=== PATIENT | female | born 1980 | race Caucasian/White ===

== ENCOUNTER 2018-06-22 11:22 | Emergency (ER) | payer BC, MEDICAID ==
[~2018-06-22] VITALS: Ht 167.6 cm; Wt 58.1 kg
[~2018-06-22 11:22] MED LIST: CODE-54 PO; Ibuprofen PO; LVT.025T PO; PREN1TAB19 PO
[2018-06-22] MEDS ORDERED: ONDANSETRON 4 MG/2 ML (SDV) Z0FRAN IVP ONE (12:00)
[2018-06-22] MEDS ORDERED: NS IV 1000 ML 1,000 ML IV SCH (12:00)
--- NOTE | 2018-06-22 12:04 | ED Abdominal Pain ---
General Chief Complaint: Abdominal/GI Problems Stated Complaint: LRQ PAIN; ABD PAIN Source of Information: Patient History of Present Illness Date Seen by Provider: Jun 22, 2018 Time Seen by Provider: 11:58 Initial Comments Patient is a 38-year-old female who presents with intermittent periumbilical pain rating to right lower quadrant/pelvis. Symptom onset was yesterday. Patient also reports nausea, loose stools, and loss of appetite. Pain is rated as moderate and is gradually getting worse. No fever chills, sweats. Patient does report obstipation. No other acute symptoms or complaints. Currently on menstrual period, not taking control. Previous cholecystectomy. Timing/Duration: 12-24 Hours Severity/Quality: Moderate Radiation: RLQ, Back Activities at Onset: None Allergies and Home Medications Allergies Coded Allergies: Penicillins (Verified Allergy, Unknown, 10/14/13) morphine (Verified Allergy, Unknown, throat tightens, 10/15/13) Uncoded Allergies: surgical glue (Adverse Reaction, Unknown, rash, blisters, 10/15/13) Home Medications Acetaminophen/Codeine 1 Tab Tablet, 1-2 TAB PO Q4H PRN for MODERATE TO SEVERE PAIN Prescribed by: CHASITY RAO on 10/27/13 0747 Levothyroxine Sodium 25 Mcg Tablet, 1 EACH PO DAILY, (Reported) Vit/Fe Fumarate/Fa 1 Each Tablet, 1 EACH PO DAILY, (Reported) [Ibuprofen] 600 MG TAB, 600 MG PO Q6H Prescribed by: CHASITY RAO on 10/27/13 0747 Patient Home Medication List Home Medication List Reviewed: Yes Review of Systems Review of Systems Constitutional: see HPI EENTM: Throat Pain Respiratory: No Symptoms Reported Cardiovascular: No Symptoms Reported Gastrointestinal: Abdomen Distended, Abdominal Pain, Nausea, Poor Appetite, Poor Fluid Intake Genitourinary: No Symptoms Reported Musculoskeletal: no symptoms reported Skin: no symptoms reported Psychiatric/Neurological: No Symptoms Reported Endocrine: No Symptoms Reported Past Xmbcfrt-Zeysmp-Fcaoiw Hx Patient Social History Alcohol Use: Denies Use Recreational Drug Use: No Smoking Status: Never a Smoker 2nd Hand Smoke Exposure: No Physical Abuse: No Sexual Abuse: No Mistreated: No Fear: No Immunizations Up To Date Tetanus Booster (TDap): Less than 5yrs PED Vaccines UTD: No Past Medical History Surgeries: Yes (2009; left knee surgery meniscus repair; wisdom teeth) Gallbladder Respiratory: No Cardiac: No Neurological: No Reproductive Disorders: No Female Reproductive Disorders: Polycystic Ovarian Dis Sexually Transmitted Disease: No HIV/AIDS: No Genitourinary: Yes Kidney Stones Gastrointestinal: No Musculoskeletal: No Endocrine: Yes Hypothyroidsim HEENT: No Hearing Impairment: Denies Cancer: No Psychosocial: No Integumentary: No Blood Disorders: No Adverse Reaction/Blood Tranf: No Family Medical History Diabetes mellitus 19 FATHER, Onset:60 years & older Physical Exam Vital Signs Vital Signs - First Documented 06/22/18 11:52 Temp 97.2 Pulse 72 Resp 18 B/P (MAP) 114/71 (85) Pulse Ox 99 O2 Delivery Room Air Capillary Refill : Height/Weight/BMI Height: 5'6.00" Weight: 153lbs. 2.0oz. [id number]; BMI Method: General Appearance: WD/WN, mild distress HEENT: PERRL/EOMI, normal ENT inspection, TMs normal, pharynx normal, scleral icterus (R) Neck: full range of motion, supple Cardiovascular: normal peripheral pulses Gastrointestinal: soft, abnormal bowel sounds, tenderness (periumbilical, right lower quadrant) Extremities: normal range of motion, non-tender Skin: normal color Focused Exam Sepsis Stage: Ruled Out Progress/Results/Core Measures Results/Orders Lab Results Laboratory Tests Test 06/22/18 12:00 06/22/18 12:10 Range/Units White Blood Count 5.5 4.3-11.0 10^3/uL Red Blood Count 4.91 4.35-5.85 10^6/uL Hemoglobin 14.6 11.5-16.0 G/DL Hematocrit 44 35-52 % Mean Corpuscular Volume 90 80-99 FL Mean Corpuscular Hemoglobin 30 25-34 PG Mean Corpuscular Hemoglobin Concent 33 32-36 G/DL Red Cell Distribution Width 13.2 10.0-14.5 % Platelet Count 200 130-400 10^3/uL Mean Platelet Volume 11.0 H 7.4-10.4 FL Neutrophils (%) (Auto) 61 42-75 % Lymphocytes (%) (Auto) 29 12-44 % Monocytes (%) (Auto) 5 0-12 % Eosinophils (%) (Auto) 4 0-10 % Basophils (%) (Auto) 1 0-10 % Neutrophils # (Auto) 3.4 1.8-7.8 X 10^3 Lymphocytes # (Auto) 1.6 1.0-4.0 X 10^3 Monocytes # (Auto) 0.3 0.0-1.0 X 10^3 Eosinophils # (Auto) 0.2 0.0-0.3 10^3/uL Basophils # (Auto) 0.1 0.0-0.1 10^3/uL Sodium Level 141 135-145 MMOL/L Potassium Level 4.0 3.6-5.0 MMOL/L Chloride Level 100 98-107 MMOL/L Carbon Dioxide Level 28 21-32 MMOL/L Anion Gap 13 5-14 MMOL/L Blood Urea Nitrogen 12 7-18 MG/DL Creatinine 0.83 0.60-1.30 MG/DL Estimat Glomerular Filtration Rate > 60 BUN/Creatinine Ratio 14 Glucose Level 94 70-105 MG/DL Calcium Level 9.9 8.5-10.1 MG/DL Corrected Calcium 8.5-10.1 MG/DL Total Bilirubin 0.4 0.1-1.0 MG/DL Aspartate Amino Transf (AST/SGOT) 21 5-34 U/L Alanine Aminotransferase (ALT/SGPT) 19 0-55 U/L Alkaline Phosphatase 48 40-136 U/L Total Protein 7.9 6.4-8.2 GM/DL Albumin 5.0 H 3.2-4.5 GM/DL Lipase 42 8-78 U/L Serum Test, Qualitative NEGATIVE NEGATIVE Urine Color YELLOW Urine Clarity CLEAR Urine pH 7.0 5-9 Urine Specific [place] <=1.005 1.016-1.022 Urine Protein NEGATIVE NEGATIVE Urine Glucose (UA) NEGATIVE NEGATIVE Urine Ketones NEGATIVE NEGATIVE Urine Nitrite NEGATIVE NEGATIVE Urine Bilirubin NEGATIVE NEGATIVE Urine Urobilinogen 0.2 NORMAL MG/DL Urine Leukocyte Esterase TRACE H NEGATIVE Urine RBC (Auto) 3+ H NEGATIVE Urine RBC 2-5 H /HPF Urine WBC 5-10 H /HPF Urine Squamous Epithelial Cells 5-10 /HPF Urine Crystals NONE /LPF Urine Bacteria NEGATIVE /HPF Urine Casts NONE /LPF Urine Mucus NEGATIVE /LPF Urine Culture Indicated YES My Orders Orders - CHAVEZ LOAIZA DO Cbc With Automated Diff (06/22/18 11:47) Comprehensive Metabolic Panel (06/22/18 11:47) Lipase (06/22/18 11:47) Ua Culture If Indicated (06/22/18 11:47) Ondansetron Injection (Zofran Injectio (06/22/18 12:00) Ns Iv 1000 Ml (Sodium Chloride 0.9%) (06/22/18 12:00) Hcg,Qualitative Serum (06/22/18 11:47) Urine Culture (06/22/18 12:10) Ct Abd/Pelv W (Appendicitis) (06/22/18 12:43) Fentanyl Injection (Sublimaze Injection (06/22/18 12:45) Iohexol Injection (Omnipaque 350 Mg/Ml 1 (06/22/18 13:00) Received Contrast (Hold Metformin- Contr (06/22/18 13:00) Sodium Chloride Flush (Catheter Flush Sy (06/22/18 13:00) Ns (Ivpb) (Sodium Chloride 0.9% Ivpb Bag (06/22/18 13:00) Medications Given in ED Current Medications Medications Dose Ordered Sig/Shiraz Route Start Time Stop Time Status Last Admin Dose Admin Fentanyl Citrate 25 mcg Q1H PRN IVP 06/22/18 12:45 06/22/18 13:00 25 MCG Iohexol 100 ml ONCE ONCE IV 06/22/18 13:00 06/22/18 13:01 DC 06/22/18 13:26 100 ML Ondansetron HCl 4 mg ONCE ONCE IVP 06/22/18 12:00 06/22/18 12:01 DC 06/22/18 12:20 4 MG Sodium Chloride 10 ml NEEDED PRN IV 06/22/18 13:00 06/22/18 13:26 10 ML Sodium Chloride 50 ml ONCE ONCE IV 06/22/18 13:00 06/22/18 13:01 DC 06/22/18 13:26 50 ML Vital Signs/I&O 06/22/18 06/22/18 11:52 13:00 Temp 97.2 97.2 Pulse 72 Resp 18 B/P (MAP) 114/71 (85) Pulse Ox 99 O2 Delivery Room Air Departure Communication (Admissions) Labs, imaging studies reviewed. No acute findings. Patient's symptoms improved with treatment. Recommend continued supportive care with PCP follow-up. Return precautions reviewed. Impression Primary Impression: Abdominal pain Additional Impressions: Nausea UTI (urinary tract infection) Disposition: HOME, SELF-CARE Condition: Stable Departure-Patient Inst. Decision time for Depature: 14:17 Referrals: VEGA LONDON MD (PCP/Family) Primary Care Physician Patient Instructions: Acute Abdomen (Belly Pain), Nausea and Vomiting, Adult, Urinary Tract Infection, Adult (DC) Add. Discharge Instructions: Please increase fluids, take the prescribed medications as directed. Follow up with her PCP for further evaluation in 3-5 days as needed. All discharge instructions reviewed with patient and/or family. Voiced understanding. Scripts Nitrofurantoin Macrocrystal (Macrodantin) 100 Mg Capsule 100 MG PO BID, #20 CAP Prov: CHAVEZ LOAIZA DO 06/22/18 Famotidine (Pepcid) 20 Mg Tablet 20 MG PO BID, #20 TAB Prov: CHAVEZ LOAIZA DO 06/22/18 Ondansetron (Ondansetron Odt) 4 Mg Tab.rapdis 4 MG PO Q6H, #10 TAB Prov: CHAVEZ LOAIZA DO 06/22/18 CHAVEZ LOAIZA DO Jun 22, 2018 12:04
--- OUTSIDE RECORDS SUMMARY | 2018-06-22 12:08 | XMS REPORT | Continuity of Care Document ---
Author Organization Unknown Address Unknown Allergies Active Description Code Type Severity Reaction Onset Reported/Identified Relationship to Patient Clinical Status Yes Penicillins [id number] Drug Allergy Unknown N/A 10/14/2013 Yes morphine [id number] Drug Allergy Unknown throat tightens 10/15/2013 Yes surgical glue surgical glue Unknown rash, blisters 10/15/2013 Medications There is no data. Problems Date Dx Coded Attending Type Code Diagnosis Diagnosed By 10/14/2013 CHASITY RAO DO Ot 599.0 URIN TRACT INFECTION NOS 10/14/2013 CHASITY RAO DO Ot 646.63 INFECTION-ANTEPARTUM 10/14/2013 CHASITY RAO DO Ot 661.03 PRIM UTER INERT-ANTEPART 10/16/2013 CHASITY RAO DO Ot 646.83 PREG COMPL NEC-ANTEPART 10/16/2013 CHASITY RAO DO Ot 789.00 ABDOMINAL PAIN, UNSPECIFIED SITE 10/27/2013 CHASITY RAO DO Ot 659.71 ABN DEL FET HT RT/RHYTHM,W OR W/O MENTIO 10/27/2013 CHASITY RAO DO Ot V06.1 [id number], COMBINED [ 10/27/2013 CHASITY RAO DO Ot V27.0 DELIVER-SINGLE LIVEBORN Procedures Code Description Performed By Performed On 73.59 MANUAL ASSIST DELIV NEC 10/25/2013 Results There is no data. Encounters ACCT No. Visit Date/Time Discharge Status Pt. Type Provider Facility Loc./Unit Complaint [id number] 10/25/2013 17:09:00 10/27/2013 13:10:00 DIS Inpatient CHASITY RAO DO [facility] LDRP LABOR [id number] 10/15/2013 22:23:00 10/16/2013 08:55:00 DIS Outpatient CHASITY RAO DO [facility] WSo CONTRACTIONS [id number] 10/13/2013 23:45:00 10/14/2013 13:15:00 DIS Inpatient CHASITY RAO DO [facility] LDRP CONTRACTIONS,BACK PAIN, UTI [id number] 06/22/2018 11:24:00 ACT Emergency CHAVEZ LOAIZA DO [facility] ER FS LRQ PAIN; ABD PAIN
[2018-06-22 12:35] LABS: BACTERIA,URINE NEGATIVE /HPF; BILIRUBIN,URINE NEGATIVE (NEGATIVE); CLARITY,URINE CLEAR; COLOR,URINE YELLOW; GLUCOSE, URINE (UA) NEGATIVE (NEGATIVE); KETONES,URINE NEGATIVE (NEGATIVE); LEUKOCYTE ESTERASE ,URINE TRACE (NEGATIVE); NITRITE,URINE NEGATIVE (NEGATIVE); PROTEIN,URINE NEGATIVE (NEGATIVE); UROBILINOGEN,URINE 0.2 MG/DL (NORMAL)
[2018-06-22 12:38] LABS: WHITE BLOOD COUNT 5.5 10^3/uL (4.3-11.0)
[2018-06-22 12:39] LABS: BASOPHILS # (AUTO) 0.1 10^3/uL (0.0-0.1); BASOPHILS % (AUTO) 1 % (0-10); EOSINOPHILS # (AUTO) 0.2 10^3/uL (0.0-0.3); EOSINOPHILS % (AUTO) 4 % (0-10); HEMATOCRIT 44 % (35-52); HEMOGLOBIN 14.6 G/DL (11.5-16.0); LYMPHOCYTES # (AUTO) 1.6 X 10^3 (1.0-4.0); LYMPHOCYTES % (AUTO) 29 % (12-44); MEAN CORPUSCULAR HEMOGLOBIN 30 PG (25-34); MEAN CORPUSCULAR HGB CONC 33 G/DL (32-36); MEAN CORPUSCULAR VOLUME 90 FL (80-99); MONOCYTES # (AUTO) 0.3 X 10^3 (0.0-1.0); MONOCYTES % (AUTO) 5 % (0-12); NEUTROPHILS # (AUTO) 3.4 X 10^3 (1.8-7.8); NEUTROPHILS % (AUTO) 61 % (42-75); PLATELET COUNT 200 10^3/uL (130-400); RED CELL DISTRIBUTION WIDTH 13.2 % (10.0-14.5)
[2018-06-22] MEDS ORDERED: fentaNYL INJECTION 100 MCG/2 ML AMP IVP PRN (12:45)
[2018-06-22 12:54] LABS: ALKALINE PHOSPHATASE 48 U/L (40-136); BILIRUBIN,TOTAL 0.4 MG/DL (0.1-1.0); BUN/CREATININE RATIO 14; CALCIUM 9.9 MG/DL (8.5-10.1); CARBON DIOXIDE 28 MMOL/L (21-32); CHLORIDE 100 MMOL/L (98-107); CREATININE SERUM 0.83 MG/DL (0.60-1.30); GFR ESTIMATED > 60; GLUCOSE 94 MG/DL (70-105); SODIUM 141 MMOL/L (135-145)
[2018-06-22 12:55] LABS: ALANINE AMINOTRANSFERASE 19 U/L (0-55); LIPASE 42 U/L (8-78); TOTAL PROTEIN 7.9 GM/DL (6.4-8.2)
[2018-06-22] MEDS ORDERED: NS 50 ML (IVPB) BAG IV ONE (13:00)
[2018-06-22] MEDS ORDERED: HOLD METFORMIN - RECEIVED CONTRAST 20 ML VIAL IV SCH (13:00)
[2018-06-22] MEDS ORDERED: CATHETER FLUSH 10 ML SYR IV PRN (13:00)
[2018-06-22] MEDS ORDERED: IOHEXOL 350 MG/ML 100 ML (OMNIPAQUE 350) VIAL IV ONE (13:00)
--- NOTE | 2018-06-22 13:47 | Diagnostic Imaging Report ---
PROCEDURE: CT abdomen and pelvis with contrast, rule out appendicitis. TECHNIQUE: Multiple contiguous axial images were obtained through the abdomen and pelvis after the administration of intravenous contrast. INDICATION: Right lower quadrant pain. COMPARISON: No prior studies are available for comparison. FINDINGS: The lung bases are clear. No discrete liver mass is identified. Gallbladder is surgically absent. Intrahepatic bile ducts are mildly prominent, which could be secondary to post cholecystectomy. The pancreas and spleen are unremarkable. No adrenal mass is identified. No definite renal calculi or hydronephrosis is seen. The aorta is nonaneurysmal. The small and large bowel loops are normal in caliber. The appendix is visualized in the right lower quadrant and appears unremarkable. No periappendiceal inflammation is detected. No free fluid in the abdomen is seen. There is trace free fluid in the pelvis. The uterus and bladder are unremarkable. No lymphadenopathy is seen. IMPRESSION: 1. No CT evidence of acute appendicitis. No definite urinary tract calculi or obstruction is seen. No acute feature is identified. Dictated by: Dictated on workstation # [id number]
[2018-06-22] MEDS ORDERED: ONDA4TAB11 PO (14:20)
[2018-06-22] MEDS ORDERED: FAMO-119 PO (14:20)
[2018-06-22] MEDS ORDERED: NITR-68 PO (14:20)
[2018-06-22 14:32] VITALS: BP 110/70
== END 2018-06-22 14:34 | disposition home or self-care (01) ==
LOC: EDUNIT# 11:22 → ER FS 11:24
DX: N39.0 Urinary tract infection, site not specified (principal); E03.9 Hypothyroidism, unspecified; Z90.49 Acquired absence of other specified parts of digestive tract; Z88.0 Allergy status to penicillin; Z88.5 Allergy status to narcotic agent; Z91.048 Other nonmedicinal substance allergy status; Z87.448 Personal history of other diseases of urinary system; Z87.442 Personal history of urinary calculi
CPT/HCPCS: 36415; 74177; 80053; 81000; 83690; 84703; 85025; 87088

== ENCOUNTER 2018-09-12 17:07 | Emergency (ER) | payer BC ==
[~2018-09-12] VITALS: Ht 167.6 cm; Wt 58.1 kg
[~2018-09-12 17:07] MED LIST changes: +FAMO-119 PO; +NITR-68 PO; +ONDA4TAB11 PO
[2018-09-12] MEDS ORDERED: ACETAMINOPHEN 500 MG TAB (TYLENOL) PO STA (18:20)
[2018-09-12] MEDS ORDERED: NS IV 1000 ML 1,000 ML IV SCH (18:20)
[2018-09-12] MEDS ORDERED: KETOROLAC 30 MG/ML VIAL IVP ONE (18:30)
[2018-09-12] MEDS ORDERED: cefTRIAXone FOR IV USE 1,000 MG in WATER (STERILE) FOR INJECTION 10 ML IV ONE (18:30)
[2018-09-12 18:32] LABS: HEMATOCRIT 44 % (35-52); HEMOGLOBIN 14.7 G/DL (11.5-16.0); MEAN CORPUSCULAR HEMOGLOBIN 30 PG (25-34); MEAN CORPUSCULAR VOLUME 89 FL (80-99); WHITE BLOOD COUNT 3.8 10^3/uL (4.3-11.0)
[2018-09-12 18:33] LABS: BASOPHILS % (AUTO) 1 % (0-10); EOSINOPHILS # (AUTO) 0.1 10^3/uL (0.0-0.3); EOSINOPHILS % (AUTO) 2 % (0-10); LYMPHOCYTES # (AUTO) 0.7 X 10^3 (1.0-4.0); LYMPHOCYTES % (AUTO) 18 % (12-44); MEAN CORPUSCULAR HGB CONC 33 G/DL (32-36); MEAN PLATELET VOLUME 10.7 FL (7.4-10.4); MONOCYTES # (AUTO) 0.4 X 10^3 (0.0-1.0); MONOCYTES % (AUTO) 11 % (0-12); NEUTROPHILS # (AUTO) 2.6 X 10^3 (1.8-7.8); NEUTROPHILS % (AUTO) 68 % (42-75); PLATELET COUNT 148 10^3/uL (130-400); RED CELL DISTRIBUTION WIDTH 13.4 % (10.0-14.5)
--- NOTE | 2018-09-12 18:33 | ED GU-Female ---
General Chief Complaint: Abdominal/GI Problems Stated Complaint: BODY ACHES,FEVER,CHILLS Nursing Triage Note: Pt to ED reporting worsening sx since diagnosed with UTI on Thursday at [facility]. Worsening with malaise/fever and right flank pain. [facility] Day would not evaluate as already seen and tx'd recently. Nursing Sepsis Screen: Possible Severe Sepsis Risk Source: patient Exam Limitations: no limitations History of Present Illness Date Seen by Provider: Sep 12, 2018 Time Seen by Provider: 18:00 Initial Comments The patient presents to ER by private conveyance with chief complaint that 2 days ago she started having dysuria and mild right flank pain so she went to a walk-in clinic and had a urinalysis obtained and put on Macrobid. Yesterday she said she was feeling better after starting the antibiotic but then today she started feeling rundown wore out having chills and worsening pain in her right flank. She went back to urgent care had another urinalysis done which was unremarkable and was told that her urine culture was not growing anything out. She was told to discontinue the Macrobid as it was not working. She's been using Advil 400 mg with her last use 6 hours ago at noon. She has to work tomorrow and her boss insisted that she come get checked out. She is checked her temperature several times about the day but has never been above 99. She is wearing a coat and chilling. She has been using Advil around the clock. She did recently lose her of brain cancer within the last couple months. She has not been taking care of herself as well as she should. She says she has a history of kidney stones many years ago and had a stent placed. She also has a history of multiple UTIs in the last few months. She also noticed today that since starting the Macrobid she's had copious thin clear non-malodorous discharge from the vagina. She describes the pain in her right chest down at the anterior and lateral right side of her ribs and abdomen and painful to direct palpation but not painful at rest. Feels like burning, hot. Allergies and Home Medications Allergies Coded Allergies: Penicillins (Verified Allergy, Unknown, 10/14/13) morphine (Verified Allergy, Unknown, throat tightens, 10/15/13) Uncoded Allergies: surgical glue (Adverse Reaction, Unknown, rash, blisters, 10/15/13) Home Medications Acetaminophen/Codeine 1 Tab Tablet, 1-2 TAB PO Q4H PRN for MODERATE TO SEVERE PAIN Prescribed by: CHASITY RAO on 10/27/13746 Famotidine 20 Mg Tablet, 20 MG PO BID Prescribed by: CHAVEZ LOAIZA on 06/22/181419 Levothyroxine Sodium 25 Mcg Tablet, 1 EACH PO DAILY, (Reported) Nitrofurantoin Macrocrystal 100 Mg Capsule, 100 MG PO BID Prescribed by: CHAVEZ LOAIZA on 06/22/181419 Ondansetron 4 Mg Tab.rapdis, 4 MG PO Q6H Prescribed by: CHAVEZ LOAIZA on 06/22/181419 Vit/Fe Fumarate/Fa 1 Each Tablet, 1 EACH PO DAILY, (Reported) [Ibuprofen] 600 MG TAB, 600 MG PO Q6H Prescribed by: CHASITY RAO on 10/27/13746 Patient Home Medication List Home Medication List Reviewed: Yes Review of Systems Review of Systems Constitutional: chills; No diaphoresis; malaise EENTM: No ear discharge, No ear pain Respiratory: No cough Gastrointestinal: abdominal pain (right flank); No constipation, No diarrhea, No nausea Genitourinary: discharge, dysuria Past Wskssgk-[id number]-Xutvkx Hx Patient Social History Alcohol Use: Denies Use Recreational Drug Use: No Smoking Status: Never a Smoker 2nd Hand Smoke Exposure: No Recent Foreign Travel: No Contact w/Someone Who Travel: No Recent Infectious Disease Expo: No Recent Hopitalizations: No Physical Abuse: No Sexual Abuse: No Mistreated: No Fear: No Immunizations Up To Date Tetanus Booster (TDap): Less than 5yrs PED Vaccines UTD: No Seasonal Allergies Seasonal Allergies: No Past Medical History Surgeries: Yes (2009; left knee surgery meniscus repair; wisdom teeth) Gallbladder Respiratory: No Cardiac: No Neurological: No : No Reproductive Disorders: No Female Reproductive Disorders: Polycystic Ovarian Dis Sexually Transmitted Disease: No HIV/AIDS: No Genitourinary: Yes Kidney Stones Gastrointestinal: No Musculoskeletal: No Endocrine: Yes Hypothyroidsim HEENT: No Hearing Impairment: Denies Cancer: No Psychosocial: No Integumentary: No Blood Disorders: No Adverse Reaction/Blood Tranf: No Family Medical History Diabetes mellitus 19 FATHER, Onset:60 years & older Physical Exam Vital Signs Vital Signs - First Documented 09/12/18 17:19 Temp 99.8 Pulse 100 Resp 16 B/P (MAP) 105/63 (77) Pulse Ox 95 O2 Delivery Room Air Capillary Refill : Less Than 3 Seconds Height, Weight, BMI Height: 5'6.00" Weight: 128lbs. 0oz. 58.937220vx; 24.69 BMI Method:Stated General Appearance: WD/WN, no apparent distress HEENT: PERRL/EOMI, normal ENT inspection, pharynx normal Neck: full range of motion, normal inspection Cardiovascular: normal peripheral pulses, regular rate, rhythm, tachycardia (100) Respiratory: lungs clear, normal breath sounds, no respiratory distress, no accessory muscle use Gastrointestinal: normal bowel sounds, non tender, soft Back: CVA tenderness (R), CVA tenderness (L) Neurologic/Psychiatric: alert, normal mood/affect, oriented x 3 Skin: normal color, warm/dry, other (tenderness to palpation over the right flank.) Focused Exam Lactate Level 09/12/18 18:15: Lactic Acid Level 0.73 Lactic Acid Level Laboratory Tests Test 09/12/18 18:15 Lactic Acid Level 0.73 MMOL/L (0.50-2.00) Progress/Results/Core Measures Suspected Sepsis Recent Fever Within 48 Hours: Yes Infection Criteria Present: Documented Infection New/Unexplained Altered Menta: Yes Sepsis Screen: Possible Severe Sepsis Risk SIRS Temperature:99.8 Pulse: 100 Respiratory Rate: 16 Laboratory Tests 09/12/18 18:15: White Blood Count 3.8L Blood Pressure 105 /63 Mean: 77 09/12/18 18:15: Lactic Acid Level 0.73 Laboratory Tests 09/12/18 18:15: Creatinine 0.80, INR Comment 1.0, Platelet Count 148, Total Bilirubin 0.3 Results/Orders Lab Results Laboratory Tests Test 09/12/18 18:15 09/12/18 18:24 Range/Units White Blood Count 3.8 L 4.3-11.0 10^3/uL Red Blood Count 4.93 4.35-5.85 10^6/uL Hemoglobin 14.7 11.5-16.0 G/DL Hematocrit 44 35-52 % Mean Corpuscular Volume 89 80-99 FL Mean Corpuscular Hemoglobin 30 25-34 PG Mean Corpuscular Hemoglobin Concent 33 32-36 G/DL Red Cell Distribution Width 13.4 10.0-14.5 % Platelet Count 148 130-400 10^3/uL Mean Platelet Volume 10.7 H 7.4-10.4 FL Neutrophils (%) (Auto) 68 42-75 % Lymphocytes (%) (Auto) 18 12-44 % Monocytes (%) (Auto) 11 0-12 % Eosinophils (%) (Auto) 2 0-10 % Basophils (%) (Auto) 1 0-10 % Neutrophils # (Auto) 2.6 1.8-7.8 X 10^3 Lymphocytes # (Auto) 0.7 L 1.0-4.0 X 10^3 Monocytes # (Auto) 0.4 0.0-1.0 X 10^3 Eosinophils # (Auto) 0.1 0.0-0.3 10^3/uL Basophils # (Auto) 0.0 0.0-0.1 10^3/uL Prothrombin Time 13.1 12.2-14.7 SEC INR Comment 1.0 0.8-1.4 Activated Partial Thromboplast Time 27 24-35 SEC Sodium Level 141 135-145 MMOL/L Potassium Level 3.7 3.6-5.0 MMOL/L Chloride Level 99 98-107 MMOL/L Carbon Dioxide Level 27 21-32 MMOL/L Anion Gap 15 H 5-14 MMOL/L Blood Urea Nitrogen 9 7-18 MG/DL Creatinine 0.80 0.60-1.30 MG/DL Estimat Glomerular Filtration Rate > 60 BUN/Creatinine Ratio 11 Glucose Level 108 H 70-105 MG/DL Lactic Acid Level 0.73 0.50-2.00 MMOL/L Calcium Level 9.1 8.5-10.1 MG/DL Corrected Calcium 8.5-10.1 MG/DL Total Bilirubin 0.3 0.1-1.0 MG/DL Aspartate Amino Transf (AST/SGOT) 21 5-34 U/L Alanine Aminotransferase (ALT/SGPT) 21 0-55 U/L Alkaline Phosphatase 62 40-136 U/L Total Protein 7.9 6.4-8.2 GM/DL Albumin 4.6 H 3.2-4.5 GM/DL Serum Test, Qualitative NEGATIVE NEGATIVE Urine Color YELLOW Urine Clarity CLEAR Urine pH 7.5 5-9 Urine Specific [place] 1.020 1.016-1.022 Urine Protein TRACE NEGATIVE Urine Glucose (UA) NEGATIVE NEGATIVE Urine Ketones 1+ H NEGATIVE Urine Nitrite NEGATIVE NEGATIVE Urine Bilirubin NEGATIVE NEGATIVE Urine Urobilinogen 2.0 NORMAL MG/DL Urine Leukocyte Esterase NEGATIVE NEGATIVE Urine RBC (Auto) 3+ H NEGATIVE Urine RBC 10-25 H /HPF Urine WBC NONE /HPF Urine Squamous Epithelial Cells 0-2 /HPF Urine Crystals NONE /LPF Urine Bacteria NEGATIVE /HPF Urine Casts NONE /LPF Urine Mucus NONE /LPF Urine Culture Indicated NO My Orders Orders - KAUSHIK MEIER Cbc With Automated Diff (09/12/18 18:20) Comprehensive Metabolic Panel (09/12/18 18:20) Blood Culture (09/12/18 18:20) Urinalysis (09/12/18 18:20) Urine Culture (09/12/18 18:20) Protime With Inr (09/12/18 18:20) Partial Thromboplastin Time (09/12/18 18:20) Chest 1 View Ap/Pa Only (09/12/18 18:20) Ed Iv/Invasive Line Start (09/12/18 18:20) Remove Rings In Anticipation O (09/12/18 18:20) Lactic Acid Analyzer (09/12/18 18:20) Acetaminophen Tablet (Tylenol Tablet) (09/12/18 18:20) Ed Iv/Invasive Line Start (09/12/18 18:20) Ed Iv/Invasive Line Start (09/12/18 18:20) Vital Signs Adult Sepsis Patie Q15M (09/12/18 18:20) O2 (09/12/18 18:20) Remove Rings In Anticipation O (09/12/18 18:20) Ns Iv 1000 Ml (Sodium Chloride 0.9%) (09/12/18 18:20) Ceftriaxone For Iv Use (Rocephin For I (09/12/18 18:30) Ed Iv/Invasive Line Start (09/12/18 18:20) Ketorolac Injection (Toradol Injection) (09/12/18 18:30) Hcg,Qualitative Serum (09/12/18 18:33) Ct Abdomen/Pelvis Wo (09/12/18 18:33) Medications Given in ED Current Medications Medications Dose Ordered Sig/Shiraz Route Start Time Stop Time Status Last Admin Dose Admin Ceftriaxone Sodium 1000 mg/ Sterile Water 10 ml @ 200 mls/hr ONCE ONCE IV 09/12/18 18:30 09/12/18 18:32 DC 09/12/18 19:04 200 MLS/HR Ketorolac Tromethamine 30 mg ONCE ONCE IVP 09/12/18 18:30 09/12/18 18:31 DC 09/12/18 19:04 30 MG Vital Signs/I&O 09/12/18 17:19 Temp 99.8 Pulse 100 Resp 16 B/P (MAP) 105/63 (77) Pulse Ox 95 O2 Delivery Room Air Capillary Refill : Less Than 3 Seconds Blood Pressure Mean: 77 Progress Note #1: Time: 18:31 Progress Note Possible she could've a kidney stone causing her urinary symptoms. Her symptoms did seem to improve on antibiotics. We have offered to do a CT without contrast. Also possible right flank pain which is burning and worse with gentle palpation could be shingles. We'll obtain a septic workup given the fact she is having a history of chills on antipyretics and has a temperature of 99.4 presently. Rocephin and 20 cc/kg IV fluids. Toradol and Tylenol for her body aches. Progress Note #2: Time: 19:56 Progress Note She feels much better after the fluids and Toradol and Tylenol. She has gastritis which may be viral or may be from the nitrofurantoin. She's been given a dose of Rocephin which should pretty much knock out any bladder infection at this point. I would recommend she stop the antibiotics go on a clear liquid diet take a day or 2 off and return to normal diet and work at her leisure. We'll provide her with some Zofran. She already has some Zofran at home. Diagnostic Imaging Diagonstic Imaging: Xray Plain Films/CT/US/NM/MRI: chest (1v) Comments NAME: TEDDY CLOUD MED REC#: [id number] PT STATUS: REG ER : 1980 PHYSICIAN: KAUSHIK MEIER MD ADMIT DATE: 09/12/18/ER FS Signed Date of Exam:09/12/18 CHEST 1 VIEW AP/PA ONLY INDICATION: Worsening malaise, fever and right flank pain. FINDINGS: Frontal view of the chest demonstrates the lungs to be clear. The heart, mediastinum, pulmonary vascularity and visualized bony thorax are normal. IMPRESSION: Normal chest. Dictated by: Dictated on workstation # [id number] Dict: 09/12/181913 Trans: 09/12/181919 [id number] Interpreted by: RAMONITA WHITE MD Electronically signed by: RAMONITA WHITE MD 09/12/181919 Reviewed: Reviewed by Me Diagonstic Imaging: CT (non-IV contrast kidney stone study) Plain Films/CT/US/NM/MRI: abdomen, pelvis Comments NAME: TEDDY CLOUD [facility] REC#: [id number] PT STATUS: REG ER : 1980 PHYSICIAN: KAUSHIK MEIER MD ADMIT DATE: 09/12/18/ER FS Signed Date of Exam:09/12/18 CT ABDOMEN/PELVIS WO INDICATION: Worsening symptoms since diagnosed with UTI on Thursday. Worsening malaise, fever and right flank pain. COMPARISON STUDY: CT of the abdomen and pelvis from 06/22/2018. FINDINGS: The lung bases are clear. The gallbladder is absent. The liver, spleen, pancreas, adrenal glands and left kidney are normal. A punctate calculus is present in the lower pole of the right kidney. No hydronephrosis or inflammation is present. The appendix appears normal. A tampon is present. The uterus appears unremarkable. No ascites, free air or abnormal adenopathy is present. Small bowel loops in the pelvis are mildly dilated and fluid-filled. Possible enteritis. The colon has a moderate amount of stool. Mild degenerative changes are present in the spine. IMPRESSION: 1. There is a punctate calculus in the lower pole of the right kidney. No inflammation is present. 2. There is a moderate amount of stool in the colon. 3. Small bowel loops in the pelvis are mildly distended and fluid-filled, possible enteritis. Dictated by: Dictated on workstation # [id number] Dict: 09/12/181915 Trans: 09/12/181930 [id number] [id number] Interpreted by: RAMONITA WHITE MD Electronically signed by: RAMONITA WHITE MD 09/12/181930 Reviewed: Reviewed by Me Departure Impression Primary Impression: Gastroenteritis Disposition: 01 HOME, SELF-CARE Condition: Improved Departure-Patient Inst. Decision time for Depature: 19:57 Referrals: [facility] (PCP) Primary Care Physician ZAHRA ROWE APRN (Family) Primary Care Physician Patient Instructions: [id number] Add. 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 Clear liquid diet and advance as soon as you tolerate and are not having abdominal pain and discomfort body aches or nausea. Discontinue the antibiotics. Return to the ER if you ask. Fever above 102.5. Copious diarrhea that you cannot keep up with your intake of fluids or intractable nausea and vomiting. Otherwi se plan to follow up with primary care as necessary. Expect symptoms to resolve in 3-7 days. All discharge instructions reviewed with patient and/or family. Voiced understanding. Scripts Ondansetron (Ondansetron Odt) 4 Mg Tab.rapdis 4 MG PO Q6H PRN for NAUSEA/VOMITING-1ST LINE, #8 TAB 0 Refills Prov: KAUSHIK MEIER 09/12/18 Fluconazole (Diflucan) 200 Mg Tablet 200 MG PO ONCE, #1 TAB 0 Refills Prov: KAUSHIK MEIER 09/12/18 Work/School Note: Work Release Form Date Seen in the Emergency Department: Sep 12, 2018 Return to Work: Sep 14, 2018 Restrictions: No Restrictions KAUSHIK MEIER Sep 12, 2018 18:33
[2018-09-12 18:43] LABS: BACTERIA,URINE NEGATIVE /HPF; BILIRUBIN,URINE NEGATIVE (NEGATIVE); CLARITY,URINE CLEAR; COLOR,URINE YELLOW; GLUCOSE, URINE (UA) NEGATIVE (NEGATIVE); KETONES,URINE 1+ (NEGATIVE); LEUKOCYTE ESTERASE ,URINE NEGATIVE (NEGATIVE); NITRITE,URINE NEGATIVE (NEGATIVE); PH,URINE 7.5 (5-9); PROTEIN,URINE TRACE (NEGATIVE); SQUAMOUS EPITHELIAL CELL,UR 0-2 /HPF
--- NOTE | 2018-09-12 19:00 | NUR ---
Report to Rubi PEREZ.
[2018-09-12 19:03] LABS: ALANINE AMINOTRANSFERASE 21 U/L (0-55); ALKALINE PHOSPHATASE 62 U/L (40-136); BILIRUBIN,TOTAL 0.3 MG/DL (0.1-1.0); BUN/CREATININE RATIO 11; CALCIUM 9.1 MG/DL (8.5-10.1); CARBON DIOXIDE 27 MMOL/L (21-32); CHLORIDE 99 MMOL/L (98-107); GFR ESTIMATED > 60; GLUCOSE 108 MG/DL (70-105); POTASSIUM 3.7 MMOL/L (3.6-5.0); SODIUM 141 MMOL/L (135-145); TOTAL PROTEIN 7.9 GM/DL (6.4-8.2)
[2018-09-12 19:04] LABS: ALBUMIN 4.6 GM/DL (3.2-4.5)
[2018-09-12 19:05] LABS: PROTHROMBIN TIME PATIENT 13.1 SEC (12.2-14.7)
--- NOTE | 2018-09-12 19:17 | Diagnostic Imaging Report ---
INDICATION: Worsening malaise, fever and right flank pain. FINDINGS: Frontal view of the chest demonstrates the lungs to be clear. The heart, mediastinum, pulmonary vascularity and visualized bony thorax are normal. IMPRESSION: Normal chest. Dictated by: Dictated on workstation # [id number]
--- NOTE | 2018-09-12 19:25 | Diagnostic Imaging Report ---
INDICATION: Worsening symptoms since diagnosed with UTI on Thursday. Worsening malaise, fever and right flank pain. COMPARISON STUDY: CT of the abdomen and pelvis from 06/22/2018. FINDINGS: The lung bases are clear. The gallbladder is absent. The liver, spleen, pancreas, adrenal glands and left kidney are normal. A punctate calculus is present in the lower pole of the right kidney. No hydronephrosis or inflammation is present. The appendix appears normal. A tampon is present. The uterus appears unremarkable. No ascites, free air or abnormal adenopathy is present. Small bowel loops in the pelvis are mildly dilated and fluid-filled. Possible enteritis. The colon has a moderate amount of stool. Mild degenerative changes are present in the spine. IMPRESSION: 1. There is a punctate calculus in the lower pole of the right kidney. No inflammation is present. 2. There is a moderate amount of stool in the colon. 3. Small bowel loops in the pelvis are mildly distended and fluid-filled, possible enteritis. Dictated by: Dictated on workstation # [id number]
[2018-09-12] MEDS ORDERED: ONDA4TAB11 PO (19:59)
[2018-09-12] MEDS ORDERED: FLUC200T PO (19:59)
[2018-09-12 20:05] VITALS: BP 105/63
== END 2018-09-12 20:21 | disposition home or self-care (01) ==
LOC: EDUNIT# 17:07 → ER FS 17:08
DX: K52.9 Noninfective gastroenteritis and colitis, unspecified (principal); E03.9 Hypothyroidism, unspecified; Z88.0 Allergy status to penicillin; Z88.5 Allergy status to narcotic agent; Z88.2 Allergy status to sulfonamides; Z87.442 Personal history of urinary calculi; Z87.440 Personal history of urinary (tract) infections
CPT/HCPCS: 36415; 71045; 74176; 80053; 81000; 83605; 84703; 85025; 85610; 85730; 87040; 87088; 96361; 96365; 96375

== ENCOUNTER → 2018-12-06 | Outpatient (CLI) | payer BC ==
[~2018-12-06] MED LIST changes: +FLUC200T PO
== END ==
LOC: LAB FS 16:22
PROVIDERS: ATTEND Obstetrics & Gynecology
DX: E03.9 Hypothyroidism, unspecified (principal)
CPT/HCPCS: 36415; 84443

== ENCOUNTER 2019-03-18 05:51 | Day surgery (SDC) | payer BC, MEDICAID ==
[2019-03-18] VITALS (11 sets, daily range): BP systolic 101–116; BP diastolic 54–77
[~2019-03-18] VITALS: Ht 167.7 cm; Wt 60.4 kg
[2019-03-18 06:36] LABS: BASOPHILS % (AUTO) 0 % (0-10); EOSINOPHILS # (AUTO) 0.2 10^3/uL (0.0-0.3); EOSINOPHILS % (AUTO) 5 % (0-10); HEMATOCRIT 41 % (35-52); HEMOGLOBIN 13.9 G/DL (11.5-16.0); LYMPHOCYTES # (AUTO) 1.4 X 10^3 (1.0-4.0); LYMPHOCYTES % (AUTO) 30 % (12-44); MEAN CORPUSCULAR HEMOGLOBIN 30 PG (25-34); MEAN CORPUSCULAR HGB CONC 34 G/DL (32-36); MEAN CORPUSCULAR VOLUME 88 FL (80-99); MEAN PLATELET VOLUME 9.7 FL (7.4-10.4); MONOCYTES # (AUTO) 0.3 X 10^3 (0.0-1.0); MONOCYTES % (AUTO) 7 % (0-12); NEUTROPHILS # (AUTO) 2.7 X 10^3 (1.8-7.8); NEUTROPHILS % (AUTO) 58 % (42-75); PLATELET COUNT 205 10^3/uL (130-400); RED CELL DISTRIBUTION WIDTH 13.8 % (10.0-14.5); WHITE BLOOD COUNT 4.6 10^3/uL (4.3-11.0)
[2019-03-18] MEDS ORDERED: SCOPOLAMINE 1.5 MG (TRANSDERM-SCOP) PATCH ONE (06:45)
[2019-03-18] MEDS ORDERED: ONDANSETRON 4 MG/2 ML (SDV) Z0FRAN IV ONE (06:45)
[2019-03-18] MEDS ORDERED: SCOPOLAMINE 1.5 MG (TRANSDERM-SCOP) PATCH TOP ONE (06:45)
[2019-03-18] MEDS ORDERED: ONDANSETRON 4 MG/2 ML (SDV) Z0FRAN ONE ×2 (06:45→06:53)
[2019-03-18] MEDS ORDERED: FAMOTIDINE 20MG/2ML IV (PEPCID) IV ONE (06:45)
[2019-03-18] MEDS ORDERED: SEVOFLURANE (ULTANE) 15 ML INHAL SOLN ONE (06:53)
[2019-03-18] MEDS: LACTATED RINGERS 1,000 ML IV PRN ×2 (06:53→07:40)
[2019-03-18] MEDS ORDERED: LIDOCAINE PF 2% 5 ML (XYLOCAINE) VIAL ONE (06:53)
[2019-03-18] MEDS ORDERED: proPOfol 200 MG/20 ML (DIPRIVAN) VIAL IV ONE (06:53)
[2019-03-18] MEDS ORDERED: DEXAMETHASONE 10 MG/ML (DECADRON) 1 ML VIAL ONE (06:53)
[2019-03-18] MEDS ORDERED: fentaNYL INJECTION 100 MCG/2 ML AMP ONE (06:53)
[2019-03-18] MEDS ORDERED: MIDAZOLAM 2 MG/2 ML (VERSED) VIAL ONE (06:53)
[2019-03-18] MEDS ORDERED: ONDANSETRON 4 MG/2 ML (SDV) Z0FRAN IVP PRN ×2 (07:00→08:15)
[2019-03-18] MEDS ORDERED: D5 LR IV SOLUTION 1,000 ML IV SCH (07:00)
[2019-03-18] MEDS ORDERED: KETOROLAC 30 MG/ML VIAL IVP ONE (07:00)
[2019-03-18] MEDS ORDERED: HYDROcodone/APAP 5 MG/325 MG (LORTAB) TAB PO PRN (07:00)
--- NOTE | 2019-03-18 07:00 | Progress Note-Pre Operative ---
Pre-Operative Progress Note H&P Reviewed The H&P was reviewed, patient examined and no changes noted. Date Seen by Provider: Mar 18, 2019 Time Seen by Provider: 07:00 Date H&P Reviewed: Mar 18, 2019 Time H&P Reviewed: 07:00 Pre-Operative Diagnosis: Missed CHASITY Raymundo DO Mar 18, 2019 07:00
[2019-03-18] MEDS ORDERED: Ibuprofen PO (07:08)
[2019-03-18] MEDS ORDERED: ACHD5005 PO (07:08)
--- NOTE | 2019-03-18 07:14 | Discharge Inst-Women's Service ---
Discharge Inst-Women's Serv Depart Medication/Instructions New, Converted or Re-Newed RX: RX on Chart Problems Reviewed?: Yes Consults/Follow Up Additional Follow Up: Yes Activity Activity: Activity as Tolerated Driving Instructions: You May Drive (do not drive this week) NO SMOKING: NO SMOKING Nothing Inside Vagina: No Douching, No Omega, No Tampons Diet Discharge Diet: No Restrictions Symptoms to Report to : Bleeding Excessive, Pain Increased, Fever Over 101 Degrees F, Vaginal Bleeding Increase, Questions/Concerns For Any Problems or Questions: Contact Your Physician CHASITY RAO DO Mar 18, 2019 07:14
[2019-03-18] MEDS ORDERED: PHENYLEPHRINE 100 MCG/ML 10 ML (ANESTHESIA) SYR ONE (07:24)
[2019-03-18] MEDS ORDERED: METHYLERGONOVINE 0.2 MG/ML (METHERGINE) AMP ONE (07:44)
[2019-03-18] MEDS ORDERED: fentaNYL INJECTION 100 MCG/2 ML AMP IVP ONE (08:15)
--- NOTE | 2019-03-18 11:38 | OPERATIVE REPORT ---
DATE OF SERVICE: PREOPERATIVE DIAGNOSIS: A 38-year-old female with missed . POSTOPERATIVE DIAGNOSIS: A 38-year-old female with missed . PROCEDURE: Suction D and C. SURGEON: Chasity Rao DO ANESTHESIA: LMA general. ESTIMATED BLOOD LOSS: 600 mL. URINE OUTPUT: 100 mL clear at the start of the procedure. FLUIDS: 800 mL lactated Ringer's solution. FINDINGS: Moderate amount of products of conception, grossly normal appearing external female genitalia. SPECIMEN SENT: Products of conception. INDICATIONS FOR PROCEDURE: This is 38-year-old female is the patient that I have seen yesterday in the office for first visit. She was found to have an intrauterine demise at 9 weeks. I discussed with the patient conservative measures versus proceeding with D and C. The patient wishes to move on from this and have a suction D and C performed on her. Risks of procedure were discussed with the patient in detail and after all of her questions were answered pertaining to post management strategies, the patient wished to proceed. She was scheduled for the next day. Consent was obtained in the preoperative area and the patient was taken to the operating room. OPERATIVE REPORT IN DETAIL: Once in the operating room, anesthesia was found to be adequate. She was placed in supine position with leftward tilt, prepped and draped in normal sterile fashion. A timeout was performed. The bladder was then drained using straight catheterization. Weighted speculum was inserted to the patient's vagina. Right angle retractor was used to visualize the cervix. It was grasped at 12 o'clock position using a long Allis clamp. I then gently sound the uterine cavity, depth was found to be 9 cm. I then gently dilated the cervix using Hegar dilators to maximum dilatation of 11 mm. I then placed an 11 mm curved rigid Eligio suction curette into the endometrium. I attached [place] suction and applied suction to approximately 65 mmHg, at which point I methodically cleared the endometrial cavity of all products of conception. This was done on three separate passes. I then performed a gentle sharp curettage. I then performed one final pass with the [place] suction curette after which bleeding significantly decreased; however, we did give 0.2 mg of Methergine IM for bleeding precautions. The patient tolerated the procedure well and was taken to recovery area in stable condition after all instruments removed from the patient's vagina. Lap and sponge counts were correct at the end of the procedure. Instrument counts correct as well. Job ID: [id number] DocumentID: [id number] Dictated Date: 03/18/2019 08:27:16 Records Supervisor Date: 03/18/2019 11:37:59 Dictated By: CHASITY RAO DO
--- NOTE | 2019-03-18 14:34 | Anesthesia-General Post-Op ---
General Patient Condition Mental Status/LOC: Same as Preop Cardiovascular: Satisfactory Nausea/Vomiting: Absent Respiratory: Satisfactory Pain: Controlled Complications: Absent Post Op Complications Complications None Follow Up Care/Instructions Patient Instructions None needed. Anesthesia/Patient Condition Patient Condition Patient was seen this morning after the procedure and she was doing well, no complaints, stable vital signs, no apparent adverse anesthesia problems. ROSEY STRANGE DO Mar 18, 2019 14:34
== END 2019-03-18 10:25 | disposition home or self-care (01) ==
LOC: SDC 05:51
PROVIDERS: ATTEND Obstetrics & Gynecology
DX: O02.1 Missed abortion (principal); E03.9 Hypothyroidism, unspecified; Z88.0 Allergy status to penicillin; Z88.5 Allergy status to narcotic agent; Z79.899 Other long term (current) drug therapy
CPT/HCPCS: 36415; 85025; 86850; 86900; 86901; 87081

== ENCOUNTER → 2019-05-23 | Outpatient (CLI) | payer BC, MEDICAID ==
[~2019-05-23] MED LIST changes: +ACHD5005 PO
[2019-05-23 17:56] VITALS: BP 105/71
--- NOTE | 2019-05-23 17:56 | Cardiology Stress Test Report ---
Stress Test Report Date of Procedure/Referring: Date of Procedure: May 23, 2019 PCP Georgiana Singh Admitting Physician Center/[facility] Indications: Palpitation Baseline Heart Rate: 71 Baseline Blood Pressure: Blood Pressure Systolic: 105 Blood Pressure Diastolic: 71 Baseline EKG: Baseline EKG: Normal sinus rhythm Summary/Conclusion: Summary: In summary, the patient started exercising with a baseline heart rate, blood pressure and EKG mentioned above Patient was able to exercise for a total of 9 minutes on Raj protocol, 10.5 METs Maximum heart rate 164 Maximum blood pressure 164/61 Stress EKG Minimal nondiagnostic changes Recovery EKG Return to baseline Conclusion: 1. Good exercise tolerance for a total of 9 minutes on Raj protocol, 10.5 METs, achieving 90 percent of maximum expected heart rate 2. Minimal nondiagnostic EKG changes with exercise returned to baseline during recovery 3. No arrhythmia was noted DRAKE ALY MD May 23, 2019 17:56
== END ==
LOC: CARD 10:23
PROVIDERS: ATTEND Physician Assistant
DX: E03.9 Hypothyroidism, unspecified (principal); I49.3 Ventricular premature depolarization
CPT/HCPCS: 93017; 93306

== ENCOUNTER → 2019-07-18 | Outpatient (CLI) | payer BC, MEDICAID | LOC: LAB FS 17:26 | PROVIDERS: ATTEND Obstetrics & Gynecology | DX: Z32.01 Encounter for pregnancy test, result positive (principal) | CPT/HCPCS: 36415; 84144; 84702 ==

== ENCOUNTER → 2019-11-30 | Outpatient (CLI) | payer BC, MEDICAID | LOC: LAB FS 15:32 | PROVIDERS: ATTEND Obstetrics & Gynecology | DX: Z36.89 Encounter for other specified antenatal screening (principal) | CPT/HCPCS: 36415; 84144; 84702 ==

== ENCOUNTER → 2019-12-05 | Outpatient (CLI) | payer BC, MEDICAID | LOC: LAB FS 16:06 | PROVIDERS: ATTEND Obstetrics & Gynecology | DX: Z36.89 Encounter for other specified antenatal screening (principal) | CPT/HCPCS: 36415; 84702 ==

== ENCOUNTER → 2020-01-24 | Outpatient (CLI) | payer BC, MEDICAID ==
[2020-01-24 14:48] LABS: HEMOGLOBIN 12.6 G/DL (11.5-16.0); WHITE BLOOD COUNT 7.2 10^3/uL (4.3-11.0)
[2020-01-24 15:00] LABS: ALKALINE PHOSPHATASE 47 U/L (40-136); BILIRUBIN,TOTAL 0.2 MG/DL (0.1-1.0); BUN/CREATININE RATIO 18; CARBON DIOXIDE 24 MMOL/L (21-32); CHLORIDE 102 MMOL/L (98-107); CREATININE SERUM 0.66 MG/DL (0.60-1.30); GFR ESTIMATED > 60; GLUCOSE 83 MG/DL (70-105); POTASSIUM 3.7 MMOL/L (3.6-5.0); SODIUM 136 MMOL/L (135-145)
[2020-01-24 15:01] LABS: ALANINE AMINOTRANSFERASE 10 U/L (0-55); ALBUMIN 3.9 GM/DL (3.2-4.5); TOTAL PROTEIN 6.5 GM/DL (6.4-8.2)
== END ==
LOC: LAB FS 14:03
PROVIDERS: ATTEND Family Medicine
DX: R00.2 Palpitations (principal); Z20.828 Contact with and (suspected) exposure to other viral communicable diseases
CPT/HCPCS: 36415; 80053; 84443; 85027; 86769

== ENCOUNTER 2020-02-07 15:31 | Day surgery (SDC) | payer BC, MEDICAID ==
[2020-02-07] VITALS (9 sets, daily range): BP systolic 103–130; BP diastolic 69–85
[~2020-02-07] VITALS: Ht 167.6 cm; Wt 67.3 kg
[2020-02-07] MEDS ORDERED: ceFAZolin INJECTION 1,000 MG in WATER (STERILE) FOR INJECTION 10 ML IV ONE (15:45)
[2020-02-07] MEDS ORDERED: LACTATED RINGERS 1,000 ML IV PRN (15:49)
[2020-02-07] MEDS ORDERED: SCOPOLAMINE 1.5 MG (TRANSDERM-SCOP) PATCH TOP ONE (16:00)
[2020-02-07] MEDS ORDERED: FAMOTIDINE 20MG/2ML IV (PEPCID) IV ONE (16:00)
[2020-02-07] MEDS ORDERED: ONDANSETRON 4 MG/2 ML (SDV) Z0FRAN IV ONE (16:00)
[2020-02-07] MEDS: LACTATED RINGERS 1,000 ML IV PRN ×3 (16:11→20:06)
[2020-02-07] MEDS ORDERED: LEVO50TA6 PO (16:22)
[2020-02-07 17:02] LABS: BASOPHILS % (AUTO) 0 % (0-10); EOSINOPHILS # (AUTO) 0.2 10^3/uL (0.0-0.3); EOSINOPHILS % (AUTO) 2 % (0-10); HEMATOCRIT 37 % (35-52); LYMPHOCYTES # (AUTO) 1.6 10^3/uL (1.0-4.0); LYMPHOCYTES % (AUTO) 23 % (12-44); MEAN CORPUSCULAR HEMOGLOBIN 29 pg (25-34); MEAN CORPUSCULAR HGB CONC 33 g/dL (32-36); MEAN CORPUSCULAR VOLUME 90 fL (80-99); MEAN PLATELET VOLUME 10.3 fL (9.0-12.2); MONOCYTES # (AUTO) 0.4 10^3/uL (0.0-1.0); MONOCYTES % (AUTO) 5 % (0-12); NEUTROPHILS # (AUTO) 4.8 10^3/uL (1.8-7.8); NEUTROPHILS % (AUTO) 68 % (42-75); PLATELET COUNT 187 10^3/uL (130-400)
[2020-02-07] MEDS ORDERED: ONDANSETRON 4 MG/2 ML (SDV) Z0FRAN ONE (17:23)
[2020-02-07] MEDS ORDERED: LIDOCAINE PF 2% 5 ML (XYLOCAINE) VIAL ONE (17:23)
[2020-02-07] MEDS ORDERED: SEVOFLURANE (ULTANE) 15 ML INHAL SOLN ONE ×3 (17:23→18:24)
[2020-02-07] MEDS ORDERED: proPOfol 200 MG/20 ML (DIPRIVAN) VIAL IV ONE (17:23)
[2020-02-07] MEDS ORDERED: MIDAZOLAM 2 MG/2 ML (VERSED) VIAL ONE (17:23)
[2020-02-07] MEDS ORDERED: fentaNYL INJECTION 100 MCG/2 ML AMP ONE (17:23)
[2020-02-07] MEDS ORDERED: ROCURONIUM 10 MG/ML 5 ML SYRINGE IV ONE (17:24)
--- NOTE | 2020-02-07 17:38 | Progress Note-Pre Operative ---
Pre-Operative Progress Note H&P Reviewed The H&P was reviewed, patient examined and no changes noted. Date Seen by Provider: Feb 07, 2020 Time Seen by Provider: 17:37 Date H&P Reviewed: Feb 07, 2020 Time H&P Reviewed: 17:37 Pre-Operative Diagnosis: Missed AB at 13 weeks gestation LAUREN BUSCH MD Feb 07, 2020 17:38
--- NOTE | 2020-02-07 17:39 | Progress Note-Post Operative ---
Post-Operative Progess Note Surgeon (s)/Cafeteria Helper (s) Surgeon LAUREN BUSCH MD Cafeteria Helper: None Pre-Operative Diagnosis Missed AB at 13 weeks gestation Post-Operative Diagnosis Same Procedure & Operative Findings Date of Procedure 02/07/20 Procedure Performed/Findings D&C for 13-week missed AB D&C for 13-week missed AB Anesthesia Type GETA Estimated Blood Loss Estimated blood loss (mL): 800 CC Specimens/Packing Specimens Removed Uterine contents/products of conception LAUREN BUSCH MD Feb 07, 2020 17:39
[2020-02-07] MEDS ORDERED: IBUP-1780 PO (17:41)
[2020-02-07] MEDS ORDERED: OXYC1TAB87 PO (17:41)
--- NOTE | 2020-02-07 17:42 | Discharge Inst-Surgical ---
Discharge Inst-Surgical Depart Medication/Instructions New, Converted or Re-Newed RX: RX on Chart Consults/Follow Up Patient Instructions: As directed Orders & Referrals Follow Up Appt: Call to make follow up appt. for patient in 2 weeks. Activity: Rest for 24 hours, than as tolerated. Please call in RX to patient pharmacy. Diet: As tolerated shower or tub bathe as desired. No driving for 24 hours, no alcoholic beverages for 24 hours, and nothing per vagina (no tampons, douching, or intercoarse) for 2 weeks. Patient to return to the clinic as soon as possible for: Temperature greater than 101F, Severe Pain, Foul discharge from incision or vagina, Excessive Bleeding (more than a period). Activity Activity as Tolerated: No Diet Discharge Diet: No Restrictions LAUREN BUSCH MD Feb 07, 2020 17:42
--- NOTE | 2020-02-07 17:50 | NUR ---
REPORT GIVEN TO ELMER WEBSTER RN/BECK BAEZ RN. S/O AT BEDSIDE- TAKING PURSE/BAG/TABLET. CLOTHING & SHOES ON TRANSPORT CART TO OR.
[2020-02-07] MEDS ORDERED: KETOROLAC 30 MG/ML VIAL ONE (18:24)
[2020-02-07] MEDS ORDERED: SUCCINYLCHOLINE INJ 100 MG/5 ML SYR/VIAL ONE (18:24)
[2020-02-07] MEDS ORDERED: ONDANSETRON 4 MG/2 ML (SDV) Z0FRAN IVP PRN (18:45)
[2020-02-07] MEDS ORDERED: PROMETHAZINE INJ 25 MG/ML (PHENERGAN) AMP IVP ONE (18:45)
[2020-02-07] MEDS ORDERED: MEPERIDINE (DEMEROL) INJ 50 MG/ML IVP ONE (18:45)
[2020-02-07] MEDS ORDERED: fentaNYL INJECTION 100 MCG/2 ML AMP IVP ONE (18:45)
[2020-02-07] MEDS ORDERED: PHENYLEPHRINE 100 MCG/ML 10 ML (ANESTHESIA) SYR ONE (18:50)
--- NOTE | 2020-02-07 18:52 | Anesthesia-General Post-Op ---
General Patient Condition Mental Status/LOC: Same as Preop Cardiovascular: Satisfactory Nausea/Vomiting: Absent Respiratory: Satisfactory Pain: Controlled Complications: Absent Post Op Complications Complications None Follow Up Care/Instructions Patient Instructions None needed. Anesthesia/Patient Condition Patient Condition Patient is doing well, no complaints, stable vital signs, no apparent adverse anesthesia problems. No complications reported per nursing. ISRAEL DURAN CRNA Feb 07, 2020 18:52
--- NOTE | 2020-02-07 19:07 | Diagnostic Imaging Report ---
EXAM: Limited pelvic ultrasound EXAM DATE: 02/07/2020 COMPARISON: None. HISTORY: demise. TECHNIQUE: Multiple sonographic images of the pelvis were obtained before and after D&C. FINDINGS: Prior to the procedure, a fetus is seen with a biparietal diameter of 2.06 cm corresponding to a gestational age of 13 weeks 3 days. After the procedure, no large products are visualized. There continues to be a mild amount of fluid within the endometrial cavity. IMPRESSION: No obvious retained products of conception status post D&C. Dictated by: Dictated on workstation # [id number]
--- NOTE | 2020-02-07 19:30 | NUR ---
Pt to 301 via bed per recovery analyst Ashely. Report received.
--- NOTE | 2020-02-07 20:25 | NUR ---
Pt up standby to bathroom, first post op void of 100ml clear ozzy urine noted in hat, independent pericare performed, pt to bed standby. Pt reports feeling well regarding nausea and requests sandwich tray and coke. Provided at this time, will cont to monitor.
--- NOTE | 2020-02-07 20:45 | NUR ---
800mg ibuprofen prn rx called to [facility] in [place] (pt preferred pharmacy).
--- NOTE | 2020-02-07 21:05 | NUR ---
Discharge packet given and explained, understanding voiced. hand written for pt to take scopolamine patch off within 72 hours of placement, verbalized to pt who voices understanding. 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 No concerns voiced from pt, no ss distress noted.
--- NOTE | 2020-02-07 21:08 | OPERATIVE REPORT ---
DATE OF SERVICE: 02/07/2020 PREOPERATIVE DIAGNOSIS: 13-week demise. POSTOPERATIVE DIAGNOSIS 13-week demise. OPERATIVE PROCEDURE: D and C for evacuation of 13-week demise. OPERATIVE DESCRIPTION: With the patient in supine position under satisfactory general anesthesia, she was repositioned in dorsal lithotomy position in the [facility] stirrups and prepped and draped in the usual fashion for vaginal surgery. Bedside ultrasound was performed by the operator technician showing a 12 plus week fetus with no heart motion and a 2 cm cranium. There was extensive amniotic fluid and placental tissue was noted. Weighted speculum placed in posterior fornix of vagina, cervix exposed and grasped anteriorly with single tooth tenaculum. Uterus was sounded to 17 cm with uterine sound. The cervix was then serially dilated first with César dilators and then Hegar dilators to a #16 Hegar. A #16 curved suction curette was then introduced and using suction curettage, the endometrial cavity was evacuated of a large amount of trophoblastic and decidual appearing tissue, blood clot, amniotic fluid and apparent tissue. The uterine cavity was then sharply curettaged in all 4 quadrants to good uterine cry. This curved suction curette was reintroduced and all blood clot and debris evacuated from the uterus. Ultrasound was now repeated and it did show an echogenic focus in the uterus. The curved suction curette was reintroduced and that tissue was evacuated out. The uterus completely collapsed completely. There was no remaining tissue, but as would be expected there was some bleeding on removal of the curette and a small amount of blood reaccumulated. There was no parts seen on the repeat ultrasound at this point. At this point, the procedure was terminated. The uterine cavity had been swapped were explored with a ring clamp and swabbed with a 4 x 4 and then the tenaculum was removed from the cervix. There was no bleeding from the puncture site. There was minimal bleeding now from the cervical os. The uterus was initially 14 to 16 weeks in size, now it was to be decreased in size to 10 weeks or less. The uterus was contracted nicely and again, blood loss was minimal at this point. The sponge and needle counts were correct on completion of procedure. Estimated blood loss was around 800 mL. The patient tolerated the procedure well and after being uneventfully awaken from her general anesthesia and transferred to recovery room in stable condition with plans for discharge home PAR. Job ID: [id number] DocumentID: [id number] Dictated Date: 02/07/2020 18:27:06 High School Counselor Date: 02/07/2020 21:07:49 Dictated By: LAUREN BUSCH MD
--- NOTE | 2020-02-07 21:15 | NUR ---
Pt transferred to private vehicle driven by s/o at this time via wc. no needs voiced, no ss distress noted.
[2020-02-08 00:36] VITALS: BP 109/56
[2020-02-10] MEDS ORDERED: SCOPOLAMINE PATCH REMOVAL TP SCH (16:00)
== END 2020-02-07 21:15 | disposition home or self-care (01) ==
LOC: SDC 15:31
PROVIDERS: ATTEND Obstetrics & Gynecology
DX: O02.1 Missed abortion (principal); Z3A.13 13 weeks gestation of pregnancy; Z88.0 Allergy status to penicillin; Z88.5 Allergy status to narcotic agent; Z91.048 Other nonmedicinal substance allergy status
CPT/HCPCS: 36415; 76815; 85025; 87081; 88305

== ENCOUNTER → 2020-05-08 | Outpatient (CLI) | payer BC, MEDICAID ==
[~2020-05-08] MED LIST changes: +IBUP-1780 PO; +LEVO50TA6 PO; +OXYC1TAB87 PO
== END ==
LOC: LAB FS 10:47
PROVIDERS: ATTEND Family Medicine
DX: N92.5 Other specified irregular menstruation (principal)
CPT/HCPCS: 36415; 84702

== ENCOUNTER → 2020-10-08 | Outpatient (CLI) | payer BC, MEDICAID | LOC: LAB FS 15:19 | PROVIDERS: ATTEND Obstetrics & Gynecology | DX: O03.9 Complete or unspecified spontaneous abortion without complication (principal); Z20.822 Contact with and (suspected) exposure to COVID-19 | CPT/HCPCS: 36415; 84702; 86769 ==

== ENCOUNTER → 2021-02-11 | Outpatient (CLI) | payer BC, MEDICAID ==
[2021-02-11 15:15] LABS: FREE T4 (FREE THYROXINE) 1.05 NG/DL (0.70-1.48)
== END ==
LOC: LAB FS 12:39
PROVIDERS: ATTEND Family Medicine
DX: E03.9 Hypothyroidism, unspecified (principal)
CPT/HCPCS: 36415; 84439; 84443; 86376; 86800

== ENCOUNTER → 2021-02-13 | Outpatient (CLI) | payer BC, MEDICAID | LOC: LAB FS 15:50 | PROVIDERS: ATTEND Family Medicine | DX: E03.9 Hypothyroidism, unspecified (principal); M25.50 Pain in unspecified joint; N96 Recurrent pregnancy loss | CPT/HCPCS: 36415; 84481; 85610; 85705; 85730; 86038; 86147; 86200 ==

== ENCOUNTER → 2021-03-25 | Outpatient (CLI) | payer BC, MEDICAID | LOC: LAB FS 11:40 | PROVIDERS: ATTEND Family Medicine | DX: O20.0 Threatened abortion (principal) | CPT/HCPCS: 36415; 84702 ==

== ENCOUNTER → 2021-04-08 | Outpatient (CLI) | payer BC, MEDICAID | LOC: LAB FS 12:46 | PROVIDERS: ATTEND Family Medicine | DX: O20.0 Threatened abortion (principal) | CPT/HCPCS: 36415; 84702 ==

== ENCOUNTER → 2021-04-18 | Outpatient (CLI) | payer BC, MEDICAID ==
[2021-04-18 11:23] LABS: HEMATOCRIT 37 % (35-52); HEMOGLOBIN 12.5 g/dL (11.5-16.0); MEAN CORPUSCULAR HEMOGLOBIN 29 pg (25-34); MEAN CORPUSCULAR HGB CONC 33 g/dL (32-36); MEAN CORPUSCULAR VOLUME 87 fL (80-99); MEAN PLATELET VOLUME 10.4 fL (9.0-12.2); PLATELET COUNT 221 10^3/uL (130-400); WHITE BLOOD COUNT 7.2 10^3/uL (4.3-11.0)
== END ==
LOC: LAB FS 10:44
PROVIDERS: ATTEND Family Medicine
DX: O99.281 Endocrine, nutritional and metabolic diseases complicating pregnancy, first trimester (principal); E03.9 Hypothyroidism, unspecified; Z3A.08 8 weeks gestation of pregnancy
CPT/HCPCS: 36415; 84443; 85027; 86703; 86762; 86780; 86850; 86900; 86901; 87088; 87340

== ENCOUNTER → 2021-05-17 | Outpatient (CLI) | payer BC, MEDICAID | LOC: LABNPT 15:34 | PROVIDERS: ATTEND Family Medicine | DX: Z34.91 Encounter for supervision of normal pregnancy, unspecified, first trimester (principal); Z3A.12 12 weeks gestation of pregnancy | CPT/HCPCS: 87491; 87591 ==

== ENCOUNTER → 2021-07-17 | Outpatient (CLI) | payer BC, MEDICAID ==
--- NOTE | 2021-07-17 17:21 | Diagnostic Imaging Report ---
INDICATION: Routine care. TECHNIQUE: Multiple real-time grayscale images were obtained over the gravid uterus. COMPARISON: None. FINDINGS: There is a single live intrauterine gestation in cephalic presentation. The cervix is measured at 4.2 cm in length. The cervix is obscured by the head. The placenta is anterior and measures about 3.8 cm away from the cervix. The right and left ventricular outflow tracks are seen. A four-chamber heart is seen. The heart rate measures 144 BPM. The stomach is seen. The cord insertion is seen. The bladder is seen. The kidneys are seen. Two umbilical arteries are seen. The nose and lips are seen. The diaphragm is seen. The ventricles are seen. The cerebellum is seen. The cisterna magna is seen. The profile is seen. The spine is suboptimally visualized due to lie. The amniotic fluid appears subjectively normal. A vertical pocket is seen measuring 6 cm. Biometrical measurements are as follows: Biparietal 5.62 cm, age 23 weeks 2 days. Head circumference 21.01 cm, age 23 weeks 1 days. Abdominal circumference 18.62 cm, age 23 weeks 3 days. Femur length 3.90 cm, age 22 weeks 4 days. Sonographic estimate age: 23 weeks 1 days. Sonographic estimated date of delivery: 11/12/2021. Estimated Weight: 557 gm (+/- 81 gm). LMP percentile: 98%. heart rate: 144 beats per minute. number: 1 of 1. IMPRESSION: 1. Single live intrauterine gestation measuring at 23 weeks and 1 day, which is within range of the clinical dates. 2. No abnormality is seen on anatomic survey. The spine is suboptimally seen due to lie. Dictated by: Dictated on workstation # [id number]
== END ==
LOC: RAD 15:15
PROVIDERS: ATTEND Family Medicine
DX: Z34.92 Encounter for supervision of normal pregnancy, unspecified, second trimester (principal); Z3A.23 23 weeks gestation of pregnancy
CPT/HCPCS: 76805

== ENCOUNTER → 2021-07-18 | Outpatient (CLI) | payer BC, MEDICAID | LOC: LABNPT 15:45 | PROVIDERS: ATTEND Family Medicine | DX: B02.9 Zoster without complications (principal) | CPT/HCPCS: 87254 ==

== ENCOUNTER → 2021-09-03 | Outpatient (CLI) | payer BC, MEDICAID ==
[2021-09-03 14:46] LABS: HEMATOCRIT 34 % (35-52); HEMOGLOBIN 11.4 g/dL (11.5-16.0); MEAN CORPUSCULAR HEMOGLOBIN 29 pg (25-34); MEAN CORPUSCULAR HGB CONC 33 g/dL (32-36); MEAN CORPUSCULAR VOLUME 86 fL (80-99); PLATELET COUNT 203 10^3/uL (130-400); WHITE BLOOD COUNT 7.6 10^3/uL (4.3-11.0)
== END ==
LOC: LAB FS 14:31
PROVIDERS: ATTEND Family Medicine
DX: Z34.92 Encounter for supervision of normal pregnancy, unspecified, second trimester (principal); Z3A.27 27 weeks gestation of pregnancy
CPT/HCPCS: 36415; 82950; 85027; 86780

== ENCOUNTER 2021-09-09 19:56 | Emergency (ER) | payer BC, MEDICAID ==
[~2021-09-09] VITALS: Ht 167.7 cm; Wt 75.9 kg
[2021-09-09] MEDS ORDERED: LACTATED RINGERS 1,000 ML IV ONE (20:15)
[2021-09-09 20:20] LABS: BASOPHILS % (AUTO) 0 % (0-10); EOSINOPHILS # (AUTO) 0.2 10^3/uL (0.0-0.3); EOSINOPHILS % (AUTO) 3 % (0-10); HEMATOCRIT 34 % (35-52); HEMOGLOBIN 11.2 g/dL (11.5-16.0); LYMPHOCYTES # (AUTO) 1.5 10^3/uL (1.0-4.0); LYMPHOCYTES % (AUTO) 21 % (12-44); MEAN CORPUSCULAR HEMOGLOBIN 29 pg (25-34); MEAN CORPUSCULAR HGB CONC 33 g/dL (32-36); MEAN CORPUSCULAR VOLUME 86 fL (80-99); MEAN PLATELET VOLUME 9.9 fL (9.0-12.2); MONOCYTES # (AUTO) 0.6 10^3/uL (0.0-1.0); MONOCYTES % (AUTO) 8 % (0-12); NEUTROPHILS % (AUTO) 68 % (42-75); PLATELET COUNT 203 10^3/uL (130-400); WHITE BLOOD COUNT 7.3 10^3/uL (4.3-11.0)
[2021-09-09 20:52] LABS: CREATININE SERUM 0.58 MG/DL (0.60-1.30); POTASSIUM 3.6 MMOL/L (3.6-5.0)
[2021-09-09 20:53] LABS: CALCIUM 8.3 MG/DL (8.5-10.1); MAGNESIUM 1.7 MG/DL (1.6-2.4)
--- NOTE | 2021-09-09 22:10 | ED Cardiac General ---
History of Present Illness General Chief Complaint: Cardiac/General Problems Stated Complaint: CHEST PAIN Nursing Triage Note: Pt presents per POV accompanied by spouse to ED 6. Pt reports having problems with sensation of PVC and coughing like a hiccup with each one. Pt reports they have increased some today and experienced these in past also. Pt concerns is 29 week gestation and frequent PVC's. Pt states no vaginal bleeding or no c/o abd/pelvic/back pain. Source: patient Exam Limitations: no limitations History of Present Illness Date Seen by Provider: Sep 09, 2021 Time Seen by Provider: 20:01 Initial Comments This 41-year-old young lady presents to the emergency room at 28 weeks gestational age with complaints of PVCs and occasional bounding heartbeat. She has history of PVCs and has been seen by Dr. Washington in the past. Her care is currently being provided by Dr. London. She has history of hypothyroidism and reports thyroid labs were checked early in the . She does not know if her thyroid has been checked recently. She takes aspirin 81 mg daily, levothyroxine, and Valtrex for a protracted course of shingles. She has a dry cough associated with her PVCs that is disruptive and annoying. She denies any other symptoms of acute illness. She has been out in the heat much recently and wonders if poor hydration is a contributing factor. She reports positive movement today. 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 ) Allergies and Home Medications Allergies Coded Allergies: Penicillins (Verified Allergy, Unknown, 10/14/13) morphine (Verified Allergy, Unknown, throat tightens, pt has rec Tylenol#3 in the past, 03/18/19) Uncoded Allergies: surgical glue (Adverse Reaction, Unknown, rash, blisters, 10/15/13) Patient Home Medication List Home Medication List Reviewed: Yes Ibuprofen (Ibuprofen) 800 Mg Tablet, 800 MG PO Q6H PRN for PAIN Prescribed by: LAUREN FLOYD on 02/07/20 174 Levothyroxine Sodium (Levothyroxine Sodium) 50 Mcg Tablet, 50 MCG PO DAILY, (Reported) Entered as Reported by: TANGELA RUDD on 02/07/20 1622 Oxycodone HCl/Acetaminophen (Percocet 5-325 mg Tablet) 1 Each Tablet, 1 TAB PO Q4H Prescribed by: LAUREN FLOYD on 02/07/20 1741 Review of Systems Review of Systems Constitutional: no symptoms reported EENTM: No Symptoms Reported Respiratory: See HPI Cardiovascular: See HPI Gastrointestinal: No Symptoms Reported Genitourinary: See HPI Musculoskeletal: no symptoms reported Skin: no symptoms reported Psychiatric/Neurological: No Symptoms Reported Endocrine: See HPI Hematologic/Lymphatic: No Symptoms Reported Past Vjyoxyn-Icuhps-Qymlhv Hx Patient Social History Tobacco Use?: No Use of E-Cig and/or Vaping dev: No Use of E-Cig and/or Vaping Albert: Never a User Substance use?: No Alcohol Use?: No Immunizations Up To Date Tetanus Booster (TDap): Less than 5yrs PED Vaccines UTD: No First/Initial COVID19 Vaccinat: 2020 COVID19 Vaccine Community Development Planner: Nino&Nino Seasonal Allergies Seasonal Allergies: No Past Medical History Surgery/Hospitalization HX: Cholecystectomy, [place] Teeth, Meniscus tear repair X 2, Hypothroidism Surgeries: Yes (2008; left knee surgery meniscus repair; wisdom teeth) Gallbladder, Orthopedic Respiratory: No Currently Using CPAP: No Currently Using BIPAP: No Cardiac: Yes Palpitations (PVCs) Neurological: No : Yes Expected Date of Delivery: Nov 27, 2021 Last Menstrual Period: Feb 20, 2021 Reproductive Disorders: No Female Reproductive Disorders: Polycystic Ovarian Dis Sexually Transmitted Disease: No HIV/AIDS: No Genitourinary: Yes Kidney Stones Gastrointestinal: No Musculoskeletal: No Endocrine: Yes Hypothyroidsim HEENT: No Hearing Impairment: Denies Cancer: No Psychosocial: No Integumentary: Yes (Chronic shingles) Blood Disorders: No Adverse Reaction/Blood Tranf: No Family Medical History Diabetes mellitus 19 FATHER, Onset:60 years & older Physical Exam Vital Signs Vital Signs - First Documented 09/09/21 19:58 Temp 36.6 Pulse 101 Resp 20 B/P (MAP) 130/86 (101) Pulse Ox 97 O2 Delivery Room Air Capillary Refill : Less Than 3 Seconds Height, Weight, BMI Height: 5'6.00" Weight: 128lbs. 0oz. [id number]; 26.00 BMI Method:Stated General Appearance: No Apparent Distress, WD/WN, Thin HEENT: PERRL/EOMI, Normal ENT Inspection, Other (Oropharynx somewhat dry) Neck: Normal Inspection; No JVD Respiratory: Lungs Clear, Normal Breath Sounds, No Accessory Muscle Use Cardiovascular: Regular Rate, Rhythm, No Edema, No Murmur, Other (Occasional premature beat) Gastrointestinal: Normal Bowel Sounds, Non Tender, Soft, Other (Appropriately gravid) Extremity: Normal Inspection, No Pedal Edema Neurologic/Psychiatric: Alert, Oriented x3, No Motor/Sensory Deficits, Normal Mood/Affect Skin: Normal Color, Warm/Dry Progress/Results/Core Measures Results/Orders Lab Results Laboratory Tests Test 09/09/21 20:10 Range/Units White Blood Count 7.3 4.3-11.0 10^3/uL Red Blood Count 3.88 3.80-5.11 10^6/uL Hemoglobin 11.2 L 11.5-16.0 g/dL Hematocrit 34 L 35-52 % Mean Corpuscular Volume 86 80-99 fL Mean Corpuscular Hemoglobin 29 25-34 pg Mean Corpuscular Hemoglobin Concent 33 32-36 g/dL Red Cell Distribution Width 13.4 10.0-14.5 % Platelet Count 203 130-400 10^3/uL Mean Platelet Volume 9.9 9.0-12.2 fL Immature Granulocyte % (Auto) 1 % Neutrophils (%) (Auto) 68 42-75 % Lymphocytes (%) (Auto) 21 12-44 % Monocytes (%) (Auto) 8 0-12 % Eosinophils (%) (Auto) 3 0-10 % Basophils (%) (Auto) 0 0-10 % Neutrophils # (Auto) 5.0 1.8-7.8 10^3/uL Lymphocytes # (Auto) 1.5 1.0-4.0 10^3/uL Monocytes # (Auto) 0.6 0.0-1.0 10^3/uL Eosinophils # (Auto) 0.2 0.0-0.3 10^3/uL Basophils # (Auto) 0.0 0.0-0.1 10^3/uL Immature Granulocyte # (Auto) 0.1 0.0-0.1 10^3/uL Sodium Level 136 135-145 MMOL/L Potassium Level 3.6 3.6-5.0 MMOL/L Chloride Level 103 98-107 MMOL/L Carbon Dioxide Level 22 21-32 MMOL/L Anion Gap 11 5-14 MMOL/L Blood Urea Nitrogen 7 7-18 MG/DL Creatinine 0.58 L 0.60-1.30 MG/DL Estimat Glomerular Filtration Rate 117 BUN/Creatinine Ratio 12 Glucose Level 105 70-105 MG/DL Calcium Level 8.3 L 8.5-10.1 MG/DL Magnesium Level 1.7 1.6-2.4 MG/DL My Orders Orders - JORDYN OHARA MD Basic Metabolic Panel (09/09/21 20:05) Cbc With Automated Diff (09/09/21 20:05) Magnesium (09/09/21 20:05) Ekg Tracing (09/09/21 20:05) Monitor-Rhythm Ecg Trace Only (09/09/21 20:05) Ed Iv/Invasive Line Start (09/09/21 20:05) Lactated Ringers (Lr 1000 Ml Iv Solution (09/09/21 20:15) Thyroid Stimulating Hormone (09/09/21 22:07) Free T4 (Free Thyroxine) (09/09/21 22:07) Medications Given in ED Current Medications Medications Dose Ordered Sig/Shiraz Route Start Time Stop Time Status Last Admin Dose Admin Lactated Ringer's 1,000 ml @ 0 mls/hr Q0M ONCE IV 09/09/21 20:15 09/09/21 20:16 DC 09/09/21 20:18 999 MLS/HR Vital Signs/I&O 09/09/21 09/09/21 19:58 22:15 Temp 36.6 36.3 Pulse 101 91 Resp 20 16 B/P (MAP) 130/86 (101) 106/64 Pulse Ox 97 96 O2 Delivery Room Air Room Air Blood Pressure Mean: 101 Progress Progress Note : Progress Note Labs were unremarkable. Patient was hydrated with a liter of LR. She continued to have frequent PVCs. Thyroid studies (TSH and free T4) will be sent to [place] and patient knows to follow-up on these results later in the week. We discussed limiting stimulant use such as caffeine which she uses minimally anyway. We also discussed the potential for treatment with medication such as beta-blockers. I am hesitant to prescribe this from the emergency room. She will follow-up with Dr. Washington's office or Dr. London's office to discuss treatment for managing her symptoms. Initial ECG Impression Date: Sep 09, 2021 Initial ECG Impression Time: 20:36 Initial ECG Rate: 86 Initial ECG Rhythm: Normal Sinus Initial ECG Intervals: Normal Initial ECG Impression: Normal Comment Normal sinus rhythm with no ST elevation or depression. No abnormal intervals or axis deviation. Although no PVCs were noted on this EKG, she had frequent PVCs noted on telemetry monitoring. Departure Impression Primary Impression: PVCs (premature ventricular contractions) Additional Impression: Qualified Codes: Z3A.28 - 28 weeks gestation of Disposition: 01 HOME, SELF-CARE Condition: Stable Departure-Patient Inst. Decision time for Depature: 22:00 Referrals: VEGA LONDON MD (PCP/Family) Primary Care Physician Patient Instructions: Ventricular Premature Beats Add. Discharge Instructions: Drink plenty of clear liquids to stay well-hydrated. Follow-up with Dr. London and Dr. Washington's office tomorrow by phone to inquire about symptom management for your PVCs. Thyroid study results should be available by tomorrow afternoon. Please review with Dr. London. Avoid unnecessary stimulants. Taper down on caffeine consumption. Return to the ER if you have worsening symptoms, especially if those symptoms include increasing shortness of breath, chest pain, lightheadedness, etc. Call with questions or concerns. All discharge instructions reviewed with patient and/or family. Voiced understanding. Copy Copies To 1: VEGA LONDON MD Copies To 2: DRAKE WASHINGTON MD, JOSHUA T MD Sep 09, 2021 22:10
[2021-09-09 22:15] VITALS: BP 106/64
[2021-09-09] MEDS ORDERED: VALA10007 (22:51)
[2021-09-09] MEDS ORDERED: ASPI-1238 PO (22:51)
[2021-09-10 06:16] LABS: FREE T4 (FREE THYROXINE) 0.79 NG/DL (0.70-1.48)
== END 2021-09-09 22:15 | disposition home or self-care (01) ==
LOC: EDUNIT# 19:56 → ER FS 19:59
DX: O62.9 Abnormality of forces of labor, unspecified (principal); Z3A.28 28 weeks gestation of pregnancy; Z28.311 Partially vaccinated for COVID-19
CPT/HCPCS: 36415; 80048; 83735; 84439; 84443; 85025; 85027; 93005; 93041

== ENCOUNTER 2021-09-10 19:57 | Emergency (ER) | payer BC, MEDICAID ==
[~2021-09-10] VITALS: Ht 167.7 cm; Wt 75.6 kg
[~2021-09-10 19:57] MED LIST changes: +ASPI-1238 PO; +VALA10007
--- NOTE | 2021-09-10 20:08 | ED General ---
General Stated Complaint: HEART RATE FLUCUATING History of Present Illness Date Seen by Provider: Sep 10, 2021 Time Seen by Provider: 20:05 Initial Comments 41-year-old female presents with her fluctuating heart rate. Patient was seen last night and diagnosed with PVCs. Patient reports that seems like today whenever she gets a PVC cause her to have some shortness of breath. Patient reports that she feels like she has some occasional pain or tightness. She does have a cough. She has some generalized malaise and just does not feel good. Patient is 29 weeks . Patient was also suspected to be mildly dehydrated when she was evaluated last night. Patient presented today because it seems like her symptoms have not improved and she has a mild shortness of breath/cough associated with her PVCs Allergies and Home Medications Allergies Coded Allergies: Penicillins (Verified Allergy, Unknown, 10/14/13) codeine (Verified Allergy, Unknown, 09/09/21) morphine (Verified Allergy, Unknown, throat tightens, pt has rec Tylenol#3 in the past, 03/18/19) Uncoded Allergies: surgical glue (Adverse Reaction, Unknown, rash, blisters, 10/15/13) Patient Home Medication List Home Medication List Reviewed: Yes Aspirin (Aspirin EC) 81 Mg Tablet.dr, 81 MG PO DAILY, (Reported) Entered as Reported by: REGINA GO on 09/09/212250 Ibuprofen (Ibuprofen) 800 Mg Tablet, 800 MG PO Q6H PRN for PAIN Prescribed by: LAUREN FLOYD on 02/07/201740 Levothyroxine Sodium (Levothyroxine Sodium) 50 Mcg Tablet, 50 MCG PO DAILY, (Reported) Entered as Reported by: TANGELA RUDD on 02/07/20 162 Oxycodone HCl/Acetaminophen (Percocet 5-325 mg Tablet) 1 Each Tablet, 1 TAB PO Q4H Prescribed by: LAUREN FLOYD on 02/07/201740 Valacyclovir HCl (Valacyclovir) 1,000 Mg Tablet, (Reported) Entered as Reported by: REGINA GO on 09/09/212250 Review of Systems Review of Systems Constitutional: No chills, No fever Respiratory: cough, dyspnea on exertion; No wheezing Cardiovascular: see HPI, palpitations Gastrointestinal: see HPI Genitourinary: no symptoms reported Musculoskeletal: no symptoms reported Skin: no symptoms reported Psychiatric/Neurological: No Symptoms Reported Hematologic/Lymphatic: No Symptoms Reported Past Xswpere-Xslrlj-Wbxolj Hx Immunizations Up To Date Tetanus Booster (TDap): Less than 5yrs PED Vaccines UTD: No First/Initial COVID19 Vaccinat: 2020 Seasonal Allergies Seasonal Allergies: No Past Medical History Surgery/Hospitalization HX: Cholecystectomy, [place] Teeth, Meniscus tear repair X 2, Hypothroidism Surgeries: Yes (2009; left knee surgery meniscus repair; wisdom teeth) Gallbladder, Orthopedic Respiratory: No Currently Using CPAP: No Currently Using BIPAP: No Cardiac: Yes Palpitations Neurological: No Reproductive Disorders: No Female Reproductive Disorders: Polycystic Ovarian Dis Sexually Transmitted Disease: No HIV/AIDS: No Genitourinary: Yes Kidney Stones Gastrointestinal: No Musculoskeletal: No Endocrine: Yes Hypothyroidsim HEENT: No Hearing Impairment: Denies Cancer: No Psychosocial: No Integumentary: Yes (Chronic shingles) Blood Disorders: No Adverse Reaction/Blood Tranf: No Family Medical History Diabetes mellitus 19 FATHER, Onset:60 years & older Physical Exam Vital Signs Vital Signs - First Documented 09/10/21 20:02 Temp 37.0 Pulse 106 Resp 27 B/P (MAP) 113/45 (67) Pulse Ox 98 O2 Delivery Room Air Capillary Refill : Height, Weight, BMI Height: 5'6.00" Weight: 128lbs. 0oz. 58.817492is; 26.00 BMI Method:Stated General Appearance: No Apparent Distress, WD/WN Respiratory: Lungs Clear, Normal Breath Sounds Cardiovascular: Normal Peripheral Pulses, Tachycardia Extremity: Normal Capillary Refill, Normal Inspection, Normal Range of Motion Neurologic/Psychiatric: Alert, Oriented x3, No Motor/Sensory Deficits, Normal Mood/Affect, social worker school II-XII Norm as Tested Progress/Results/Core Measures Suspected Sepsis SIRS Temperature: Pulse: Respiratory Rate: Laboratory Tests 09/10/21 20:32: White Blood Count 6.9 Blood Pressure / Mean: Laboratory Tests 09/10/21 20:32: Creatinine 0.51L, Platelet Count 206, Total Bilirubin 0.2 Results/Orders Lab Results Laboratory Tests Test 09/10/21 20:32 Range/Units White Blood Count 6.9 4.3-11.0 10^3/uL Red Blood Count 3.94 3.80-5.11 10^6/uL Hemoglobin 11.1 L 11.5-16.0 g/dL Hematocrit 33 L 35-52 % Mean Corpuscular Volume 85 80-99 fL Mean Corpuscular Hemoglobin 28 25-34 pg Mean Corpuscular Hemoglobin Concent 33 32-36 g/dL Red Cell Distribution Width 13.3 10.0-14.5 % Platelet Count 206 130-400 10^3/uL Mean Platelet Volume 10.1 9.0-12.2 fL Immature Granulocyte % (Auto) 1 % Neutrophils (%) (Auto) 67 42-75 % Lymphocytes (%) (Auto) 20 12-44 % Monocytes (%) (Auto) 8 0-12 % Eosinophils (%) (Auto) 3 0-10 % Basophils (%) (Auto) 0 0-10 % Neutrophils # (Auto) 4.7 1.8-7.8 10^3/uL Lymphocytes # (Auto) 1.4 1.0-4.0 10^3/uL Monocytes # (Auto) 0.6 0.0-1.0 10^3/uL Eosinophils # (Auto) 0.2 0.0-0.3 10^3/uL Basophils # (Auto) 0.0 0.0-0.1 10^3/uL Immature Granulocyte # (Auto) 0.1 0.0-0.1 10^3/uL Sodium Level 137 135-145 MMOL/L Potassium Level 3.4 L 3.6-5.0 MMOL/L Chloride Level 107 98-107 MMOL/L Carbon Dioxide Level 20 L 21-32 MMOL/L Anion Gap 10 5-14 MMOL/L Blood Urea Nitrogen 7 7-18 MG/DL Creatinine 0.51 L 0.60-1.30 MG/DL Estimat Glomerular Filtration Rate 120 BUN/Creatinine Ratio 14 Glucose Level 137 H 70-105 MG/DL Calcium Level 8.8 8.5-10.1 MG/DL Corrected Calcium 9.4 8.5-10.1 MG/DL Total Bilirubin 0.2 0.1-1.0 MG/DL Aspartate Amino Transf (AST/SGOT) 13 5-34 U/L Alanine Aminotransferase (ALT/SGPT) 10 0-55 U/L Alkaline Phosphatase 73 40-136 U/L Troponin I < 0.30 <0.30 NG/ML C-Reactive Protein 0.45 <0.50 MG/DL Total Protein 5.9 L 6.4-8.2 GM/DL Albumin 3.2 3.2-4.5 GM/DL SARS-CoV-2 RNA (RT-PCR) Not Detected Not Detecte My Orders Orders - DIANE SANCHEZ L DO Lactated Ringers (Lr 1000 Ml Iv Solution (09/10/21 20:13) Covid 19 Inhouse Test (09/10/21 20:13) Cbc With Automated Diff (09/10/21 20:21) Comprehensive Metabolic Panel (09/10/21 20:21) Crp Fs (09/10/21 20:21) Troponin I Fs (09/10/21 20:21) Potassium Chloride (Tablet) (K Dur Table (09/10/21 21:45) Magnesium (09/10/21 21:39) Medications Given in ED Current Medications Medications Dose Ordered Sig/Shiraz Route Start Time Stop Time Status Last Admin Dose Admin Potassium Chloride 40 meq ONCE ONCE PO 09/10/21 21:45 09/10/21 21:46 09/10/21 21:36 40 MEQ Vital Signs/I&O 09/10/21 20:02 Temp 37.0 Pulse 106 Resp 27 B/P (MAP) 113/45 (67) Pulse Ox 98 O2 Delivery Room Air Capillary Refill : Progress Note : Progress Note Patient having occasional PVCs and appears a cause her have some hiccups andcough. I suspect that this is likely due to diaphragmatic irritation due to her being and elevated diaphragm. I did review her labs from last night and compared it today her potassium was slightly decreased, due to slight decrease we will treat her with 40 mEq potassium to see if we can reduce her PVCs. Her thyroid hormones were within normal limits that were drawn last night but results have not been read back by the time she was discharged. I recommend she call her primary guidance adviser tomorrow if her symptoms continue. I will add a magnesium that they will be able to review tomorrow if she needs to follow-up with her guidance adviser. She can return to the ER as needed. Patient stable discharged home. ECG Initial ECG Impression Date: Sep 10, 2021 Initial ECG Impression Time: 20:09 Initial ECG Rhythm: S.Tach, PVC Initial ECG Impression: Normal Departure Impression Primary Impression: PVCs (premature ventricular contractions) Additional Impression: 29 weeks gestation of Disposition: 01 HOME, SELF-CARE Condition: Stable Departure-Patient Inst. Referrals: VEGA LONDON MD (PCP/Family) Primary Care Physician Patient Instructions: Arrhythmias, How to Adapt to Physical Changes During Add. Discharge Instructions: please call Dr Washington in morning to see if he would like to see you in clinic. Return to ER as needed. DIANE SANCHEZ DO Sep 10, 2021 20:08
[2021-09-10] MEDS ORDERED: LACTATED RINGERS 1,000 ML IV STA (20:13)
[2021-09-10 20:47] LABS: BASOPHILS % (AUTO) 0 % (0-10); EOSINOPHILS # (AUTO) 0.2 10^3/uL (0.0-0.3); EOSINOPHILS % (AUTO) 3 % (0-10); HEMATOCRIT 33 % (35-52); HEMOGLOBIN 11.1 g/dL (11.5-16.0); LYMPHOCYTES # (AUTO) 1.4 10^3/uL (1.0-4.0); LYMPHOCYTES % (AUTO) 20 % (12-44); MEAN CORPUSCULAR HEMOGLOBIN 28 pg (25-34); MEAN CORPUSCULAR HGB CONC 33 g/dL (32-36); MEAN CORPUSCULAR VOLUME 85 fL (80-99); MEAN PLATELET VOLUME 10.1 fL (9.0-12.2); MONOCYTES # (AUTO) 0.6 10^3/uL (0.0-1.0); MONOCYTES % (AUTO) 8 % (0-12); NEUTROPHILS # (AUTO) 4.7 10^3/uL (1.8-7.8); NEUTROPHILS % (AUTO) 67 % (42-75); PLATELET COUNT 206 10^3/uL (130-400); WHITE BLOOD COUNT 6.9 10^3/uL (4.3-11.0)
[2021-09-10 21:08] LABS: ALANINE AMINOTRANSFERASE 10 U/L (0-55); ALBUMIN 3.2 GM/DL (3.2-4.5); ALKALINE PHOSPHATASE 73 U/L (40-136); BILIRUBIN,TOTAL 0.2 MG/DL (0.1-1.0); BUN/CREATININE RATIO 14; CALCIUM 8.8 MG/DL (8.5-10.1); CARBON DIOXIDE 20 MMOL/L (21-32); CHLORIDE 107 MMOL/L (98-107); CREATININE SERUM 0.51 MG/DL (0.60-1.30); GFR ESTIMATED 120; GLUCOSE 137 MG/DL (70-105); POTASSIUM 3.4 MMOL/L (3.6-5.0); SODIUM 137 MMOL/L (135-145); TOTAL PROTEIN 5.9 GM/DL (6.4-8.2)
[2021-09-10] MEDS ORDERED: KCL 20 MEQ TAB (K-DUR) PO ONE (21:45)
[2021-09-10 21:50] VITALS: BP 106/57
== END 2021-09-10 21:51 | disposition home or self-care (01) ==
LOC: EDUNIT# 19:57 → ER FS 19:59
DX: O99.413 Diseases of the circulatory system complicating pregnancy, third trimester (principal); I49.3 Ventricular premature depolarization; Z20.822 Contact with and (suspected) exposure to COVID-19; Z3A.29 29 weeks gestation of pregnancy
CPT/HCPCS: 36415; 80053; 83735; 84484; 85025; 86141; 87636; 93005

== ENCOUNTER → 2021-09-26 | Outpatient (CLI) | payer BC, MEDICAID ==
--- NOTE | 2021-09-26 13:20 | Diagnostic Imaging Report ---
INDICATION: Followup for a growth and completion of survey. TECHNIQUE: Multiple real-time grayscale images were obtained over the gravid uterus. COMPARISON: 07/17/2021 FINDINGS: There is single live intrauterine fetus. The spine was visualized today and appears normal. Amniotic fluid index appears normal. Anterior placenta without evidence of previa. Biometrical measurements are as follows: Biparietal 9.41 cm, age 38 weeks 3 days. Head circumference 33.50 cm, age 38 weeks 3 days. Abdominal circumference 30.93 cm, age 35 weeks 0 days. Femur length 6.75 cm, age 34 weeks 5 days. Sonographic estimate age: 36 weeks 5 days. Sonographic estimated date of delivery: 10/19/2021. Estimated Weight: 2701 gm (+/- 395 gm). LMP percentile: 98%. heart rate: 140 beats per minute. number: 1 of 1. IMPRESSION: 36 week 5 day average measurement for the fetus with current exam. No abnormalities noted. Dictated by: Dictated on workstation # [id number]
== END ==
LOC: RAD FS 09:54
PROVIDERS: ATTEND Family Medicine
DX: O36.63X0 Maternal care for excessive fetal growth, third trimester, not applicable or unspecified (principal); Z3A.36 36 weeks gestation of pregnancy
CPT/HCPCS: 76805

== ENCOUNTER 2021-10-28 09:22 | Outpatient (CLI) | payer BC, MEDICAID ==
[~2021-10-28] VITALS: Ht 167 cm; Wt 75.6 kg
[2021-10-28 09:41] VITALS: BP 119/70
--- NOTE | 2021-10-29 08:39 | Physician Query-Final Dx ---
ALLISON,10/29/21 0839: Clinic Account Progress/Dx Physician Query: Please give diagnosis Please include # weeks gestation Date of Service Oct 28, 2021 at 09:22 CHASITY RAO DO 10/29/21 1740: Clinic Account Progress/Dx DIAGNOSIS: Diagnosis 37 week IUP Decreased movement ALLISON,MarOct 29, 2021 08:39 CHASITY RAO DO Oct 29, 2021 17:40
== END 2021-10-28 10:25 | disposition home or self-care (01) ==
LOC: WSo 09:22 → LDRP 09:22 → WSo 10:25
PROVIDERS: ATTEND Obstetrics & Gynecology
DX: O36.8130 Decreased fetal movements, third trimester, not applicable or unspecified (principal); Z3A.37 37 weeks gestation of pregnancy
CPT/HCPCS: 99212

== ENCOUNTER 2021-10-29 22:43 | Inpatient (IN) | payer BC, MEDICAID ==
[~2021-10-29] VITALS: Ht 168 cm; Wt 76.5 kg
[2021-10-29 23:00] VITALS: BP 133/70
[2021-10-29] MEDS ORDERED: D5 LR IV SOLUTION 1,000 ML IV SCH (23:15)
[2021-10-29] MEDS ORDERED: MINERAL OIL 30 ML UDC TOP PRN (23:15)
[2021-10-29] MEDS ORDERED: D5 LR IV SOLUTION 1,000 ML IV ONE (23:17)
[2021-10-29] MEDS ORDERED: fentaNYL 2 mcg/ml BUPIVA 0.125 0 ML ONE (23:36)
[2021-10-29 23:38] LABS: BASOPHILS % (AUTO) 0 % (0-10); EOSINOPHILS # (AUTO) 0.1 10^3/uL (0.0-0.3); EOSINOPHILS % (AUTO) 1 % (0-10); HEMATOCRIT 35 % (35-52); HEMOGLOBIN 11.3 g/dL (11.5-16.0); LYMPHOCYTES # (AUTO) 1.5 10^3/uL (1.0-4.0); LYMPHOCYTES % (AUTO) 16 % (12-44); MEAN CORPUSCULAR HEMOGLOBIN 27 pg (25-34); MEAN CORPUSCULAR HGB CONC 33 g/dL (32-36); MEAN CORPUSCULAR VOLUME 81 fL (80-99); MEAN PLATELET VOLUME 10.3 fL (9.0-12.2); MONOCYTES # (AUTO) 0.8 10^3/uL (0.0-1.0); MONOCYTES % (AUTO) 8 % (0-12); NEUTROPHILS % (AUTO) 74 % (42-75); PLATELET COUNT 203 10^3/uL (130-400); WHITE BLOOD COUNT 9.4 10^3/uL (4.3-11.0)
[2021-10-29] MEDS ORDERED: fentaNYL INJ 100 MCG/2 ML AMP ONE (23:59)
[2021-10-30] VITALS (18 sets, daily range): BP systolic 103–139; BP diastolic 54–85
--- NOTE | 2021-10-30 00:03 | History & Physical-OB ---
OB - Chief Complaint & HPI Date/Time Date of Admission: Date of Admission: Oct 29, 2021 at 23:04 Date seen by a Provider: Oct 30, 2021 Time Seen by a Provider: 00:02 Chief Complaint/History OB-Reason for Admission/Chief: Onset of Labor Hx : 8 Hx Para: 5 Expected Date of Delivery: Nov 12, 2021 Gestational Age in Weeks: 38 Gestational Age in Days: 1 Admission Nurse Assessment Rev: Yes Allergies and Home Medications Allergies Coded Allergies: Penicillins (Verified Allergy, Unknown, 10/14/13) codeine (Verified Allergy, Unknown, 09/09/21) morphine (Verified Allergy, Unknown, throat tightens, pt has rec Tylenol#3 in the past, 03/18/19) Uncoded Allergies: surgical glue (Adverse Reaction, Unknown, rash, blisters, 10/15/13) Patient Home Medication List Home Medication List Reviewed: Yes Aspirin (Aspirin EC) 81 Mg Tablet.dr, 81 MG PO DAILY, (Reported) Entered as Reported by: REGINA GO on 09/09/212250 Levothyroxine Sodium (Levothyroxine Sodium) 50 Mcg Tablet, 50 MCG PO DAILY, (Reported) Entered as Reported by: TANGELA RUDD on 02/07/20 1622 Discontinued Medications Ibuprofen (Ibuprofen) 800 Mg Tablet, 800 MG PO Q6H PRN for PAIN Discontinued Reason: No Longer Taking Prescribed by: LAUREN FLOYD on 02/07/201740 Oxycodone HCl/Acetaminophen (Percocet 5-325 mg Tablet) 1 Each Tablet, 1 TAB PO Q4H Discontinued Reason: No Longer Taking Prescribed by: LAUREN FLOYD on 02/07/20 1741 Valacyclovir HCl (Valacyclovir) 1,000 Mg Tablet, (Reported) Discontinued Reason: No Longer Taking Entered as Reported by: REGINA GO on 09/09/212250 OB - History Hx of Present Care: Yes Ultrasounds: Normal mid trimester US Obstetrical Complications: None Medical Complications: None Obstetrical History Hx Termination: No Hx Multiple Gestation: No Hx Stillbirth: No Hx Complication: No Hx Induced Hypertens: No Hx Maternal Gestational Diabet: No Delivery History Hx Dystocia: No Hx Large For Gestational Age I: No Hx Small for Gestational Age I: Yes (IUGR x2) Hx Section: No Hx Vaginal Delivery Post C-Sec: No Hx Blood Disorders: No Adverse Rxn to Tranfusion: No Patient Past Medical History nc Social History/Family History 2nd Hand Smoke Exposure: No Immunizations First/Initial COV19 Vaccine: 2020 Hepatitis A: Yes Hepatitis B: Yes Tetanus Booster (TDap): Less than 5yrs OB - Admission Exam Physical Exam HEENT: NCAT Heart: Rhythm Normal Lungs: Clear Abdomen: Gravid Extremities: Normal Reflexes: Normal Cervical Dilatation: 7cm Effacement: 100% Station: -1 Membranes: Intact Heart Rate: 130's Accelerations: Accelerations Present Decelerations: No Decelerations Short Term Variability: Present Reel Winder Variability: Average (6-25) Contractions on Admission: < 5 Minutes Apart Intensity: Firm Labs Laboratory Tests Test 10/29/21 23:10 Range/Units White Blood Count 9.4 4.3-11.0 10^3/uL Red Blood Count 4.26 3.80-5.11 10^6/uL Hemoglobin 11.3 L 11.5-16.0 g/dL Hematocrit 35 35-52 % Mean Corpuscular Volume 81 80-99 fL Mean Corpuscular Hemoglobin 27 25-34 pg Mean Corpuscular Hemoglobin Concent 33 32-36 g/dL Red Cell Distribution Width 13.6 10.0-14.5 % Platelet Count 203 130-400 10^3/uL Mean Platelet Volume 10.3 9.0-12.2 fL Immature Granulocyte % (Auto) 1 % Neutrophils (%) (Auto) 74 42-75 % Lymphocytes (%) (Auto) 16 12-44 % Monocytes (%) (Auto) 8 0-12 % Eosinophils (%) (Auto) 1 0-10 % Basophils (%) (Auto) 0 0-10 % Neutrophils # (Auto) 7.0 1.8-7.8 10^3/uL Lymphocytes # (Auto) 1.5 1.0-4.0 10^3/uL Monocytes # (Auto) 0.8 0.0-1.0 10^3/uL Eosinophils # (Auto) 0.1 0.0-0.3 10^3/uL Basophils # (Auto) 0.0 0.0-0.1 10^3/uL Immature Granulocyte # (Auto) 0.1 0.0-0.1 10^3/uL OB - Assessment/Plan/Diagnosis Assessment Assessment: active labor Admission Dx 41 yo @ 38.1 Active labor AMA GBS neg Admission Status: Inpatient Order (span 2 midnights) Reason for Inpatient Admission: 38 week IUP, active labor Plan Plan: Expectant Management CHASITY RAO DO Oct 30, 2021 00:03
--- NOTE | 2021-10-30 00:13 | Discharge Inst-Women's Service ---
Discharge Inst-Women's Serv Depart Medication/Instructions New, Converted or Re-Newed RX: Transmitted to Pharmacy Final Diagnosis PPD 1 NVD Problems Reviewed?: Yes Consults/Follow Up Additional Follow Up: Yes Orders/Referrals Dr. Rao in 6 weeks Activity Activity: Activity as Tolerated Driving Instructions: No Driving for 1 Week NO SMOKING: NO SMOKING Nothing Inside Vagina: No Douching, No [place], No Tampons Diet Discharge Diet: No Restrictions Symptoms to Report to : Bleeding Excessive, Pain Increased, Fever Over 101 Degrees F, Vaginal Bleeding Increase, Questions/Concerns For Any Problems or Questions: Contact Your Physician CHASITY RAO DO Oct 30, 2021 00:13
[2021-10-30] MEDS ORDERED: DIBU30OI TOP (00:14)
[2021-10-30] MEDS ORDERED: DOCU100C37 PO (00:14)
[2021-10-30] MEDS ORDERED: IBUP-844 PO (00:14)
[2021-10-30] MEDS ORDERED: BENZ78AE5 TP (00:14)
[2021-10-30] MEDS ORDERED: MEASLES,MUMPS,RUBELLA 1 EA INJ SQ ONE (00:15)
[2021-10-30] MEDS ORDERED: DIBUCAINE 1% OINTMENT 30 GM TUBE TOP PRN (00:15)
[2021-10-30] MEDS ORDERED: NALOXONE 0.4 MG/ML 1 ML (NARCAN) VIAL IV PRN ×3 (00:15→00:30)
[2021-10-30] MEDS ORDERED: WITCH HAZEL(TUCKS) 40 EA JAR TOP PRN (00:15)
[2021-10-30] MEDS ORDERED: TETANUS,DIPTH,PERTUSS P/F (BOOSTRIX) 0.5 ML VIAL IM ONE (00:15)
[2021-10-30] MEDS ORDERED: BENZOCAINE/MENTHOL (DERMOPLAST) 56 ML CAN TP PRN (00:15)
[2021-10-30] MEDS ORDERED: ONDANSETRON 4 MG/2 ML (SDV) Z0FRAN IV PRN (00:30)
[2021-10-30] MEDS ORDERED: METOCLOPRAMIDE INJ 10 MG/2 ML (REGLAN) IV PRN (00:30)
[2021-10-30] MEDS ORDERED: diphenhydrAMINE 50 MG/ML INJ (BENADRYL) IV PRN (00:30)
[2021-10-30] MEDS: OXYTOCIN PRE-MIX DRIP 500 ML IV SCH ×2 (00:39→01:08)
--- NOTE | 2021-10-30 00:49 | OB Labor & Delivery Record ---
L&D History Date of Service Date of Service: Oct 30, 2021 History Expected Date of Delivery: Nov 12, 2021 Gestational Age in Weeks: 38 Hx : 8 Hx Para: 5 Complications Events: Routine care Operative Indications (Cesarea: N/A-Vaginal Delivery Intrapartal Events: Precipitous Labor < 3 hrs L&D Stage1 Stage One Onset of Labor - Date: Oct 30, 2021 Monitors and Tracing Monitor Mode: External Monitor Accelerations: Uniform Monitor Decelerations: Early Station: 0 Patient Access Variability: Average (6-10) Short Term Variability: Present Presentation: Vertex Rupture of Membranes Spontaneous Ruture of Membrane: No Amniotic Membrane Rupture Time: 12:20 Amniotic Membrane Fluid Desc.: Port Wine Vaginal Bleeding Description: Normal Show Progress/Notes Patient admitted 7-8 cm, in active labor. Labor spinal received and AROM performed thereafter. She rapidly progressed to complete and 0 station and began to push L&D Stage2 Stage Two Stage II Date: Oct 30, 2021 Monitors and Tracing Monitor Mode: External Heart Rate: 140 Monitor Accelerations: Uniform Monitor Decelerations: Variable Patient Access Variability: Average (6-10) Short Term Variability: Present Position: Right Occiput Anterior Presentation: Vertex Cord Descript/Complications Cord Vessel Description: 3 Vessels Delivery Type Delivery Method: Spontaneous Vaginal Anterior Shoulder: Left Episiotomy/Perineal Laceration Laceraction(s)/Extensions: No Condition of Infant Delivery 1 minute Comment: 9 5 minute Comment: 9 Notes Live male weight pending Condition of Infant Condition of : Living Exam: No Observed Abnormalities Resuscitation Resuscitation: N/A - Spontaneous Resp L&D Stage3 Stage Three Stage III Date: Oct 30, 2021 Pictocin Pitocin Administration Comment: 30 mu wide open after delivery of placenta Placenta Delivery Placenta Delivery: Spontaneous Delivery Summary Summary Estimated blood loss (mL): 300 Attending at delivery: Chasity Rao DO Condition of Delivery Examined: Cervix Examined, Uterus Explored Post Hemorrhage: No Condition of Mother stable Condition of Infant (s) stable CHASITY RAO DO Oct 30, 2021 00:48
[2021-10-30] MEDS: IBUPROFEN 600 MG (MOTRIN) TAB PO SCH ×4 (02:24→19:57)
[2021-10-30] MEDS ORDERED: LACTATED RINGERS 1,000 ML IV SCH (05:15)
[2021-10-30] MEDS ORDERED: CATHETER FLUSH 10 ML SYR IV SCH ×2 (06:00)
[2021-10-30] MEDS: FERROUS SULF 325 MG (IRON) TAB PO SCH (08:19)
[2021-10-30] MEDS: DOCUSATE SODIUM 100 MG (COLACE) CAP PO SCH ×2 (08:19→19:57)
[2021-10-30] MEDS: PRENATAL VITAMIN 1 EA TAB PO SCH (08:19)
--- NOTE | 2021-10-30 10:40 | Anesthesia-Regional Post-Op ---
Regional Patient Condition Mental Status: Alert, Oriented x3 Circulation: Same as Pre-Op Headache: Absent Sensation: Full Recovery Motor Block: Absent Post Op Complications Complications None Follow Up Care/Instructions Patient Instructions None needed. Anesthesia/Patient Condition Patient is doing well, no complaints, stable vital signs, no apparent adverse anesthesia problems. No complications reported per nursing. TAMARA AHUJA CRNA Oct 30, 2021 10:40
[2021-10-31 02:01] VITALS: BP 112/59
[2021-10-31] MEDS: IBUPROFEN 600 MG (MOTRIN) TAB PO SCH ×3 (02:02→14:45)
[2021-10-31 06:06] LABS: BASOPHILS % (AUTO) 0 % (0-10); EOSINOPHILS # (AUTO) 0.3 10^3/uL (0.0-0.3); EOSINOPHILS % (AUTO) 4 % (0-10); HEMATOCRIT 32 % (35-52); HEMOGLOBIN 10.1 g/dL (11.5-16.0); LYMPHOCYTES # (AUTO) 1.9 10^3/uL (1.0-4.0); LYMPHOCYTES % (AUTO) 23 % (12-44); MEAN CORPUSCULAR HEMOGLOBIN 26 pg (25-34); MEAN CORPUSCULAR HGB CONC 32 g/dL (32-36); MEAN CORPUSCULAR VOLUME 83 fL (80-99); MEAN PLATELET VOLUME 10.7 fL (9.0-12.2); MONOCYTES # (AUTO) 0.6 10^3/uL (0.0-1.0); MONOCYTES % (AUTO) 7 % (0-12); NEUTROPHILS # (AUTO) 5.5 10^3/uL (1.8-7.8); NEUTROPHILS % (AUTO) 65 % (42-75); PLATELET COUNT 179 10^3/uL (130-400); WHITE BLOOD COUNT 8.5 10^3/uL (4.3-11.0)
[2021-10-31] MEDS: PRENATAL VITAMIN 1 EA TAB PO SCH (08:25)
[2021-10-31] MEDS: FERROUS SULF 325 MG (IRON) TAB PO SCH (08:25)
[2021-10-31] MEDS: DOCUSATE SODIUM 100 MG (COLACE) CAP PO SCH (08:25)
[2021-10-31 08:37] VITALS: BP 125/78
[2021-10-31 14:45] VITALS: BP 115/60
== END 2021-10-31 18:40 | disposition home or self-care (01) | DRG 807 ==
LOC: WSo 22:43 → LDRP 23:04
PROVIDERS: ADMIT Obstetrics & Gynecology; ATTEND Obstetrics & Gynecology
PROC: 10E0XZZ Delivery of Products of Conception, External Approach (ICD-10-PCS; principal; 2021-10-30)
DX: O62.3 Precipitate labor (principal); Z37.0 Single live birth; Z3A.38 38 weeks gestation of pregnancy; Z79.82 Long term (current) use of aspirin; Z88.5 Allergy status to narcotic agent; Z88.0 Allergy status to penicillin
CPT/HCPCS: 36415; 85025; 86850; 86900; 86901; 99212